=== PATIENT | male | born 1975 | race Caucasian/White ===

== ENCOUNTER 2018-02-03 01:23 | Outpatient (CLI) | payer MEDICAID, SELFPAY ==
--- NOTE | 2018-02-13 10:35 | HOLTER_ITS ---
HOLTER MONITOR REPORT DATE OF DICTATION February 13, 2018 INTERPRETATION Baseline rhythm sinus. Rare single PAC. 5 bursts of SVT, longest 11 beat duration, fastest 149 beats per minute. No atrial f ibrillation. Rare single PVC. No VT. Nocturnal heart rates as low as 55-60 beats per minute, sinus bradycardia. SYMPTOMS No symptoms. Average heart rate 81 beats per minute. Duy Quach M.D. AASHISH/tray T-02/13/2018
== END 2018-02-03 01:43 ==
PROVIDERS: PCP Nurse Practitioner Family; Visit Provider Nurse Practitioner Family
DX: R55 Syncope and collapse (principal); R00.1 Bradycardia, unspecified; I47.1 Supraventricular tachycardia
CPT/HCPCS: 93225

== ENCOUNTER 2018-02-09 11:48 | Outpatient (CLI) | payer MEDICAID, SELFPAY | END 2018-02-09 12:08 | PROVIDERS: PCP Nurse Practitioner Family; Visit Provider Nurse Practitioner Family | DX: R55 Syncope and collapse (principal); I47.1 Supraventricular tachycardia; R00.1 Bradycardia, unspecified | CPT/HCPCS: 93226 ==

== ENCOUNTER 2018-05-15 13:24 | Outpatient (CLI) | payer MEDICAID, SELFPAY ==
--- NOTE | 2018-05-15 15:30 | DI.RAD_ITS ---
SYMPTOM/DIAGNOSIS: LT SHOULDER PAIN, M25.512 LEFT SHOULDER; No fracture or dislocation is seen. The glenohumeral joint space is well maintained. There is minimal spurring at the AC joint. The visualized portions of the left ribs appear intact. IMPRESSION: Minimal AC joint degenerative changes.
== END 2018-05-15 13:44 ==
PROVIDERS: PCP Nurse Practitioner Family; Visit Provider Nurse Practitioner Family
DX: M25.512 Pain in left shoulder (principal); M19.012 Primary osteoarthritis, left shoulder
CPT/HCPCS: 73030

== ENCOUNTER 2018-06-29 00:31 | Outpatient (CLI) | payer MEDICAID, SELFPAY ==
--- NOTE | 2018-06-29 10:43 | DI.MRI_ITS ---
SYMPTOMS/DIAGNOSIS: PRIMARY OA OF SHOULDER, LT SHOULDER BICEPS TENDINITIS LEFT SHOULDER MRI: MRI examination of the shoulder was performed according to the usual protocol. No significant bony signal abnormality seen. Mild hypertrophic changes of the acromioclavicular joint are noted. The supraspinatus, subscapularis and infraspinatus tendons appear intact except for minimal abnormal signal in supraspinatus myotendinous junction region which may represent a small partial thickness tear. No full thickness rotator cuff tear seen. The requisition raises the possibility of biceps tendinitis. The biceps tendon shows normal signal throughout its course and normal placement in the bicipital groove. Note is made however of abnormal signal in the rotator interval region probably associated with coracohumeral ligament. No gross labral defect identified by noncontrast criteria. CONCLUSION: No evidence of a biceps tendinitis, however, there is question of a rotator interval tear as described above. Small partial thickness nonretracted supraspinatus tendon tear may be present as well. Tiny partial thickness subscapularis tendon tear may also be present.
== END 2018-06-29 00:51 ==
PROVIDERS: PCP Nurse Practitioner Family; Visit Provider Nurse Practitioner Family
DX: M25.512 Pain in left shoulder (principal); M19.012 Primary osteoarthritis, left shoulder; M75.82 Other shoulder lesions, left shoulder
CPT/HCPCS: 73221

== ENCOUNTER 2020-04-25 19:46 | Outpatient (REF) | payer MEDICAID, SELFPAY ==
[2020-04-25 20:20] LABS: ALT 28 U/L (16-63); AST 21 U/L (15-37); Alkaline Phosphatase 48 U/L (46-116); Anion Gap 9.4 mmol/L (3-11); BUN 18 mg/dL (7-18); Bilirubin, Total 0.2 mg/dL (0.2-1.0); CO2 26.6 mmol/L (21.0-32.0); CREATININE 1.1 mg/dL (0.70-1.30); Calcium 9.3 mg/dL (8.5-10.1); Chloride 104 mmol/L (98-107); Glucose 116 mg/dL (74-106); Potassium 3.7 mmol/L (3.5-5.1); Sodium 140 mmol/L (136-145); Total Protein 7.6 g/dL (6.4-8.2)
== END 2020-04-25 19:47 | disposition home or self-care (01) ==
LOC: NCHCN 19:46
PROVIDERS: PCP Nurse Practitioner Family; Visit Provider Nurse Practitioner Family
DX: I10 Essential (primary) hypertension (principal); E78.5 Hyperlipidemia, unspecified
CPT/HCPCS: 80053

== ENCOUNTER 2020-11-15 11:19 | Emergency (ER) | payer MEDICAID, SELFPAY ==
[2020-11-15] VITALS (18 sets, daily range): BP systolic 168–215; BP diastolic 92–136; PULSE 78–102; RESP 16; TEMP 36.6; O2SAT 95–98
--- NOTE | 2020-11-15 11:33 | W.ED.GENAD ---
Discharge Plan Disposition Patient Disposition: HOME Condition: Stable Discharge Details Clinical Impression: Colitis Primary Care Provider: Cyndi Song ED Provider: Leonard Gibbs Home Meds and New Rx's Prescriptions: New dicyclomine 20 mg tablet 20 mg PO QID Qty: 20 RF: 0 Continued amlodipine 5 MG tablet 5 mg PO DAILY RF: 0 lisinopril 40 MG tablet 40 mg PO DAILY RF: 0 amitriptyline 25 MG tablet 25 mg PO HS Qty: 30 RF: 3 labetalol 100 MG tablet 100 mg PO BID Qty: 60 RF: 0 Discharge Instructions Instructions: Colitis (ED) Additional Instructions: At this time your CT reveals colitis, or inflammation of your bowel. This is nonspecific, no clear indication for antibiotic therapy, may require further evaluation as an outpatient for definitive care. Bentyl as directed. Plenty of fluids to avoid dehydration, clear liquid diet, advance as tolerated. Please watch for new or worsening symptoms and return to the ER for any concerns. Otherwise I recommend contacting your primary care provider on Tuesday to discuss your ER visit and need for outpatient reevaluation. Outpatient colonoscopy may be indicated for further work-up Discharge Data Discharge Date/Time-TO BE ENTERED AT DEPARTURE: 11/15/20 14:58 Medical Decision Making 44-year-old gentleman presents with lower abdominal cramping that began last night associate with one episode of vomiting today. Clinically he is hypertensive at 203/112, otherwise laboratory values are unremarkable, afebrile, abdomen appears to be nonsurgical. He has not taken any of his morning medications, I would like to provide 20 IV labetalol as she already does take an oral beta-bj, will obtain IV access and obtain laboratory values for further assessment of his symptoms. Differential includes not excluded to gastritis, appendicitis, mesenteric adenitis, diverticulitis, small bowel obstruction, ileus, colitis, etc. Patient denies any active nausea, will not provide antiemetic. Blood pressure is trending downwards the patient still remains hypertensive, will give a second dose of labetalol White blood cell count of 11.25 hemoglobin 17.9 hematocrit 53.4 platelet count 289, absolute neutrophils 9.00, electrolytes unremarkable, creatinine 1.2 with GFR greater than 60, glucose 110, urinalysis with trace ketones Given his discomfort, will obtain CT imaging for further evaluation of possible etiology. CT reveals bowel wall thickening consistent with ileitis, and colitis. Patient appears hemoconcentrated, minimal leukocytosis of 11.25 with absolute neutrophils 9.00. No fever. Abdomen nonsurgical in nature. Discussed CT findings with patient. No clear indication to initiate antibiotic therapy. Will provide IV Toradol and Bentyl. Patient upon reevaluation reports that his symptoms are improving with the medication. Will provide a prescription for Bentyl, encouraged to return to the ER for new or worsening symptoms, and recommend that he contact his primary care provider on Tuesday, if symptoms persist further evaluation to potential colonoscopy could be indicated, may require GI and/or surgical consultation. Standard discharge and return precautions provided This documentation was generated using [email or web address] system, please disregard any oddities of phrase or misspellings. Medical Records Medical records reviewed: Yes I reviewed the patient's medical records. Imaging Data Radiologic Study: Attestation: I personally reviewed and interpreted this imaging study as follows: Imaging: CT Scan Radiologist's impression: PROCEDURE INFORMATION: Exam: CT Abdomen And Pelvis With Contrast Exam date and time: 11/15/2020 12:23 PM Age: 44 years old Clinical indication: Abdominal pain; Generalized; Patient HX: Rlq llq pain TECHNIQUE: Imaging protocol: Computed tomography of the abdomen and pelvis with contrast. Contrast material: OMNIPAQUE 350; Contrast volume: 100 ml; Contrast route: INTRAVENOUS (IV); COMPARISON: No relevant prior studies available. FINDINGS: Liver: Normal. No mass. Gallbladder and bile ducts: Normal. No calcified stones. No ductal dilation. Pancreas: Normal. No ductal dilation. Spleen: Normal. No splenomegaly. Adrenal glands: Normal. No mass. Kidneys and ureters: 15 mm simple cyst right kidney. . No follow-up imaging recommended . Subcentimeter low attenuation area in the right kidney is too small for characterization. Stomach and bowel: Bowel wall thickening throughout the ileum consistent with ileitis. Series 4, image 44. Series 5, image 30 Mild Bowel wall thickening in the right colon and proximal right transverse colon consistent with colitis.. Differential includes decompressed bowel. Appendix: No evidence of appendicitis. Intraperitoneal space: Minimal free fluid in the pelvis Vasculature: Unremarkable. No abdominal aortic aneurysm. Lymph nodes: Unremarkable. No enlarged lymph nodes. Urinary bladder: Unremarkable as visualized. LAURYN HICKS Preliminary Radiology Report BILINGUAL MANAGER (QA) DISCREPANCY? If there is a discrepancy between the preliminary and final interpretation, please notify [facility] via [email or web address]. If you do not have access to our QA portal, call our QA team at [phone] CONFIDENTIALITY STATEMENT This report is intended only for the use of the referring physician, and only in accordance with law, If you received this in error, call [phone] Page 2 of 2 Reproductive: Unremarkable as visualized. Bones/joints: Unremarkable. No acute fracture. Soft tissues: Unremarkable. IMPRESSION: 1. Bowel wall thickening throughout the ileum consistent with ileitis. Series 4, image 44. Series 5, image 30 2. Mild Bowel wall thickening in the right colon and proximal right transverse colon consistent with colitis.. Differential includes decompressed bowel. Lab Data Lab results reviewed: Yes I reviewed the patient's lab results. Labs: Laboratory Tests Range/Units 11/15/20 11/15/20 11/15/20 11:56 11:56 13:42 WBC (4.4-10.8) 10^3/uL 11.25 H RBC (4.36-5.78) 10^6/uL 6.34 H Hgb (13.5-17.5) g/dL 17.9 H Hct (40.0-50.0) % 53.4 H MCV (80-95) fL 84.2 MCH (27.0-33.0) pg 28.2 MCHC (32.0-36.0) % 33.5 RDW (11.8-14.1) % 13.8 Plt Count (130-400) 10^3/uL 289 MPV (8.0-11.0) fL 9.6 Immature Gran % 0.0 Neutrophils % 80.0 Lymphocytes % 10.0 Atypical Lymphs % 3 Monocytes % 7.0 Eosinophils % 0.0 Basophils % 0.0 Nucleated RBC % % 0 Absolute Neutrophils (1.2-6.7) 10^3/uL 9.00 H Absolute Lymphocytes (1.2-3.4) 10^3/uL 1.46 Absolute Monocytes (0.1-0.8) 10^3/uL 0.79 Absolute Eosinophils (0.0-0.7) 10^3/uL 0.00 Absolute Basophils (0.0-0.2) 10^3/uL 0.00 RBC Morphology Normal Sodium (136-145) mmol/L 142 Potassium (3.5-5.1) mmol/L 3.9 Chloride (98-107) mmol/L 102 Carbon Dioxide (21.0-32.0) mmol/L 28.2 Anion Gap (3-11) mmol/L 11.8 H BUN (7-18) mg/dL 14 Creatinine (0.70-1.30) mg/dL 1.2 Estimated GFR/1.73 m2 (mL/min/1.73m2) >= 60.00 Glucose (74-106) mg/dL 110 H Calcium (8.5-10.1) mg/dL 9.3 Total Bilirubin (0.2-1.0) mg/dL 0.7 AST (15-37) U/L 16 ALT (16-63) U/L 30 Alkaline Phosphatase (46-116) U/L 44 L Total Protein (6.4-8.2) g/dL 8.5 H Albumin (3.4-5.0) g/dL 4.3 Lipase (73-393) U/L 77 Urine Color (Yellow) Yellow Urine Clarity (Clear) Clear Urine pH (5-8) 7.5 Ur Specific Salix (1.005-1.025) 1.010 Urine Protein (Negative) mg/dL 30 H Urine Ketones (Negative) mg/dL Trace H Urine Blood (Negative) Negative Urine Nitrite (Negative) Negative Urine Bilirubin (Negative) Negative Urine Urobilinogen (Up TO 0.2) EU/dL 1.0 H Ur Leukocyte Esterase (Negative) Negative Urine RBC (0-2) HPF Negative Urine WBC (0-5) HPF 0-2 Ur Epithelial Cells (Negative) HPF Rare Urine Crystals (Negative) HPF Negative Urine Bacteria (Negative) HPF Negative Urine Casts (Negative) LPF Negative Urine Mucus (Negative) Trace Ur Culture Indicated? No Urine Glucose (Negative) mg/dL Negative Urine Opiates Screen (Negative) Urine Methadone Screen (Negative) Ur Barbiturates Screen (Negative) Ur Tricyclics Screen (Negative) Ur Amphetamines Screen (Negative) U Benzodiazepines Scrn (Negative) Urine Cocaine Screen (Negative) Ur THC Screen (Negative) Range/Units 11/15/20 13:42 WBC (4.4-10.8) 10^3/uL RBC (4.36-5.78) 10^6/uL Hgb (13.5-17.5) g/dL Hct (40.0-50.0) % MCV (80-95) fL MCH (27.0-33.0) pg MCHC (32.0-36.0) % RDW (11.8-14.1) % Plt Count (130-400) 10^3/uL MPV (8.0-11.0) fL Immature Gran % Neutrophils % Lymphocytes % Atypical Lymphs % Monocytes % Eosinophils % Basophils % Nucleated RBC % % Absolute Neutrophils (1.2-6.7) 10^3/uL Absolute Lymphocytes (1.2-3.4) 10^3/uL Absolute Monocytes (0.1-0.8) 10^3/uL Absolute Eosinophils (0.0-0.7) 10^3/uL Absolute Basophils (0.0-0.2) 10^3/uL RBC Morphology Sodium (136-145) mmol/L Potassium (3.5-5.1) mmol/L Chloride (98-107) mmol/L Carbon Dioxide (21.0-32.0) mmol/L Anion Gap (3-11) mmol/L BUN (7-18) mg/dL Creatinine (0.70-1.30) mg/dL Estimated GFR/1.73 m2 (mL/min/1.73m2) Glucose (74-106) mg/dL Calcium (8.5-10.1) mg/dL Total Bilirubin (0.2-1.0) mg/dL AST (15-37) U/L ALT (16-63) U/L Alkaline Phosphatase (46-116) U/L Total Protein (6.4-8.2) g/dL Albumin (3.4-5.0) g/dL Lipase (73-393) U/L Urine Color (Yellow) Urine Clarity (Clear) Urine pH (5-8) Ur Specific Salix (1.005-1.025) Urine Protein (Negative) mg/dL Urine Ketones (Negative) mg/dL Urine Blood (Negative) Urine Nitrite (Negative) Urine Bilirubin (Negative) Urine Urobilinogen (Up TO 0.2) EU/dL Ur Leukocyte Esterase (Negative) Urine RBC (0-2) HPF Urine WBC (0-5) HPF Ur Epithelial Cells (Negative) HPF Urine Crystals (Negative) HPF Urine Bacteria (Negative) HPF Urine Casts (Negative) LPF Urine Mucus (Negative) Ur Culture Indicated? Urine Glucose (Negative) mg/dL Urine Opiates Screen (Negative) Negative Urine Methadone Screen (Negative) Negative Ur Barbiturates Screen (Negative) Negative Ur Tricyclics Screen (Negative) Negative Ur Amphetamines Screen (Negative) Negative U Benzodiazepines Scrn (Negative) Negative Urine Cocaine Screen (Negative) Negative Ur THC Screen (Negative) Negative HPI General Mode of arrival: ambulatory. Date/Time Provider Initiated Documentation: 11/15/20 11:33. Limitations to Documentation: no limitations. Information obtained by: patient. HPI Narrative: This is a 44-year-old gentleman, past medical history that includes hypertension, current everyday smoker, presenting to the ER complaining of diffuse lower abdominal cramping that began yesterday evening, vomited one time this morning, reporting mild nausea and a single loose stool but not true diarrhea. Patient denies recent illness or trauma. Denies fever, chest pain, shortness of breath, back pain, black tarry stools or bright red blood in his stools, dysuria, pain in his groin or testicles. He denies previous abdominal surgeries. He has not taken any [id number] medication for his symptoms. Patient states that his pain is mild to moderate and is always there but does become more severe during some crampy episodes. Denies any potential bad food exposure, sick contacts, recent travel. He did not take his morning medications. Related Data Home Medications Medication Instructions Recorded Confirmed labetalol 100 mg PO BID #60 tab 01/20/17 11/15/20 amlodipine 5 mg PO DAILY tab-cap 06/14/17 11/15/20 lisinopril 40 mg PO DAILY tab-cap 06/14/17 11/15/20 amitriptyline 25 mg PO HS #30 tab-cap 06/15/17 11/15/20 dicyclomine 20 mg PO QID #20 tab 11/15/20 Previous Rx's Medication Instructions Recorded labetalol 100 mg PO BID #60 tab 01/20/17 amitriptyline 25 mg PO HS #30 tab-cap 06/15/17 dicyclomine 20 mg PO QID #20 tab 11/15/20 Allergies Allergy/AdvReac Type Severity Reaction Status Date / Time No Known Allergies Allergy Unverified 11/15/20 11:35 General Stated Complaint: Abd Prob DAJA: 3 Review of Systems Constitutional Constitutional: Denies fever(s) and Denies headache(s) ENT Ears, Nose, Mouth, and Throat: Denies headache(s) Cardiovascular Cardiovascular: Denies chest pain and Denies dyspnea Respiratory Respiratory: Denies cough and Denies dyspnea Gastrointestinal Gastrointestinal: Reports abdominal pain, Denies melena, Denies hematochezia, Denies constipation, Denies diarrhea, Reports loose stools, Reports nausea and Reports vomiting Genitourinary Genitourinary: Denies dysuria and Denies testicular pain Musculoskeletal Musculoskeletal: Denies back pain Integumentary/Breasts Skin/Breast: Denies rash Neurologic Neurologic: Denies headache(s) [facility] Social History Smoking/Tobacco Use Status: Current every day Smoking risk assessment performed?: Yes Alcohol Intake: former Drug use: Never Do you feel safe at home: Yes Do you feel safe in your relationship?: Yes Exam Const General: cooperative, healthy appearing, comfortable and no acute distress Orientation: alert and awake HENMT Head: normal to inspection, normocephalic and atraumatic Face and sinus: normal facial exam Mouth: moist mucous membranes Eyes General: appearance normal, both eyes and all related structures Conjunctivae: conjunctivae normal Neck Neck: normal visual inspection, trachea midline and supple Resp Effort & Inspection: normal respiratory effort and able to speak in complete sentences Auscultation: clear to auscultation bilaterally Cardio Rate: regular rate Rhythm: regular rhythm GI Inspection: normal to inspection Palpation: soft, not firm, no guarding, no pulsatile masses and tender (Diffuse mild lower) not at McBurney's point, Brady's sign negative and with no rebound tenderness Auscultation: normal bowel sounds Back/Spine/Pelvis Back: No back tenderness Skin General skin exam: no rashes or lesions noted Neuro General: patient alert, patient awake, moves all extremities and no focal motor deficits Cognition: normal cognition Speech: speech normal Gait: normal gait Sensory Exam: no sensory deficits noted Psych Appearance: grossly normal Mental Status: mental status grossly normal Course Vital Signs Vital signs: Vital Signs Temperature 36.6 C 11/15/20 11:30 Pulse 91 H 11/15/20 11:30 Respiratory Rate 16 11/15/20 11:30 Pulse Oximetry 96 11/15/20 11:30 Temperature 36.6 C 11/15/20 11:30 Temperature Source Temporal Artery Scan 11/15/20 11:30 Pulse 91 H 11/15/20 11:30 Respiratory Rate 16 11/15/20 11:30 Blood Pressure Position Supine 11/15/20 11:30 Pulse Oximetry 96 11/15/20 11:30 Oxygen Delivery Method Room Air 11/15/20 11:30 Oxygen Flow Rate 0 11/15/20 11:30 Pain Level 10 11/15/20 11:30
[2020-11-15 12:03] LABS: Abs Immature Grans 0.03 10^3/uL (0.0-0.06); HCT 53.4 % (40.0-50.0); HGB 17.9 g/dL (13.5-17.5); MCH 28.2 pg (27.0-33.0); MCHC 33.5 % (32.0-36.0); MCV 84.2 fL (80-95); MPV 9.6 fL (8.0-11.0); Nucleated RBC 0 %; Platelet Count 289 10^3/uL (130-400); RBC 6.34 10^6/uL (4.36-5.78); RDW 13.8 % (11.8-14.1); RDW-SD 42.2 fL; WBC 11.25 10^3/uL (4.4-10.8)
--- NOTE | 2020-11-15 12:15 | DI.CT_ITS ---
Exam(s) CT ABDOMEN PELVIS W EXAM: CT ABDOMEN PELVIS W CLINICAL HISTORY: abd pain. TECHNIQUE: Imaging Protocol: Axial computed tomography images with coronal and sagittal reformatted images were created and reviewed CONTRAST MATERIAL: Intravenous: Omnipaque 350 Contrast volume:100 ml Oral: yes / no COMPARISON: CT UPPER ABD WITH CONTRAST (P) from 04/17/2009 FINDINGS: ABDOMEN: Lung Bases: Normal where visualized. Liver: Normal density. No measurable mass. Gallbladder and biliary tract: No radiodense calculus or dilation. Pancreas: Normal density, no abnormal calcifications or inflammatory process. Spleen: Normal. Kidneys: Scarring lower pole right kidney. Right renal cysts.. No radiodense stones or obstructive uropathy. No masses seen. Adrenal glands: No masses seen. Abdominal Aorta: Abdominal portion non-dilated. Mild atherosclerotic changes. PELVIS: Bladder: No gross wall thickening. No calculi.No focal mass. Bowel: Abnormally thickened and mildly dilated loops ileum, consistent with ileitis. Ascending colon mainly decompressed. A few scattered diverticula seen in the descending colon.. Appendix normal.St omach and jejunum unremarkable. Peritoneal cavity: Minimal fluid in the pelvis. Mild mesenteric edema. Soft tissues: Small fatty co ntaining left inguinal hernia. Bones: Within normal limits for age. Reproductive organs: Within normal limits. Lymph nodes: Unremarkable. Impression: Mild dilatation diffuse wall thickening involving the ileum, consistent with ileitis. Question of mi ld inflammation of the cecum and ascending colon. RADIATION DOSE DELIVERED: 703.55mGy.cm Total DLP DATA REPOSITORY: All CT scans at this facility are submitted to the National Radiology Data Registry (NRDR) Dose Index Registry (DIR) with the [employer] ([employer]). RADIATION OPTIMIZATION: All CT scans at this facility use at least one of these dose optimization te chniques: automated exposure control; mA and/or kV adjustment per patient size (includes targeted exa ms where dose is matched to clinical indication); or iterative reconstruction.
[2020-11-15 12:16] LABS: ALT 30 U/L (16-63); AST 16 U/L (15-37); Albumin 4.3 g/dL (3.4-5.0); Alkaline Phosphatase 44 U/L (46-116); Anion Gap 11.8 mmol/L (3-11); BUN 14 mg/dL (7-18); Bilirubin, Total 0.7 mg/dL (0.2-1.0); CO2 28.2 mmol/L (21.0-32.0); CREATININE 1.2 mg/dL (0.70-1.30); Calcium 9.3 mg/dL (8.5-10.1); Chloride 102 mmol/L (98-107); Glucose 110 mg/dL (74-106); Lipase 77 U/L (73-393); Potassium 3.9 mmol/L (3.5-5.1); Sodium 142 mmol/L (136-145); Total Protein 8.5 g/dL (6.4-8.2)
[2020-11-15 12:21] LABS: Absolute Lymphocyte Count 1.46 10^3/uL (1.2-3.4); Absolute Monocyte Count 0.79 10^3/uL (0.1-0.8); Atypical Lymphocytes % 3; Diff Comment Manual Differential; RBC Morphology Normal
[2020-11-15] MEDS: Labetalol 100 MG/20 ML VIAL 20 MG IVP ×2 (12:40→14:00)
[2020-11-15] MEDS: Omnipaque 350 MG/ML 100 ML BTL IJ (13:03)
[2020-11-15] MEDS: Normal Saline Flush 10 ML SYR IVP (13:04)
[2020-11-15] MEDS: Normal Saline 1,000 ML 1000 ML IV (13:05)
--- NOTE | 2020-11-15 13:34 | DI.VRAD_ITS ---
PROCEDURE INFORMATION: Exam: CT Abdomen And Pelvis With Contrast Exam date and time: 11/15/2020 12:23 PM Age: 44 years old Clinical indication: Abdominal pain; Generalized; Patient HX: Rlq llq pain TECHNIQUE: Imaging protocol: Computed tomography of the abdomen and pelvis with contrast. Contrast material: OMNIPAQUE 350; Contrast volume: 100 ml; Contrast route: INTRAVENOUS (IV); COMPARISON: No relevant prior studies available. FINDINGS: Liver: Normal. No mass. Gallbladder and bile ducts: Normal. No calcified stones. No ductal dilation. Pancreas: Normal. No ductal dilation. Spleen: Normal. No splenomegaly. Adrenal glands: Normal. No mass. Kidneys and ureters: 15 mm simple cyst right kidney. . No follow-up imaging recommended . Subcentimeter low attenuation area in the right kidney is too small for characterization. Stomach and bowel: Bowel wall thickening throughout the ileum consistent with ileitis. Series 4, image 44. Series 5, image 30 Mild Bowel wall thickening in the right colon and proximal right transverse colon consistent with colitis.. Differential includes decompressed bowel. Appendix: No evidence of appendicitis. Intraperitoneal space: Minimal free fluid in the pelvis Vasculature: Unremarkable. No abdominal aortic aneurysm. Lymph nodes: Unremarkable. No enlarged lymph nodes. Urinary bladder: Unremarkable as visualized. Reproductive: Unremarkable as visualized. Bones/joints: Unremarkable. No acute fracture. Soft tissues: Unremarkable. IMPRESSION: 1. Bowel wall thickening throughout the ileum consistent with ileitis. Series 4, image 44. Series 5, image 30 2. Mild Bowel wall thickening in the right colon and proximal right transverse colon consistent with colitis.. Differential includes decompressed bowel. Dictated and Authenticated by: Naomi Carreon MD. Ordering:ABRAHAM Valle MD
[2020-11-15 13:51] LABS: Bilirubin Negative (Negative); Blood Negative (Negative); Clarity Clear (Clear); Glucose Negative (Negative); Ketones Trace mg/dL (Negative); Leukocyte Esterase Negative (Negative); Nitrite Negative (Negative); pH 7.5 (5-8)
[2020-11-15 14:04] LABS: Bacteria Negative HPF (Negative); C & S Indicated? No; Casts Negative LPF (Negative); Crystals Negative HPF (Negative); Epithelial Cells Rare HPF (Negative); Mucus Trace (Negative); RBC Negative HPF (0-2); WBC 0-2 HPF (0-5)
[2020-11-15] MEDS: Dicyclomine 20 MG TAB PO (14:07)
[2020-11-15] MEDS: Ketorolac 30 MG/ML VIAL IVP (14:07)
[2020-11-15 14:22] LABS: *AMPHETAMINES SCREEN URINE Negative (Negative); *BARBITURATES SCREEN URINE Negative (Negative); *BENZODIAZEPINES SCREEN URINE Negative (Negative); Cannabinoids THC Negative (Negative); Cocaine Screen,Urine Negative (Negative); METHADONE URINE SCREEN Negative (Negative); OPIATES URINE SCREEN Negative (Negative); Tricyclic Antidepressants Negative (Negative)
== END 2020-11-15 14:58 | disposition home or self-care (01) ==
PROVIDERS: Emergency Provider Physician Assistant; PCP Nurse Practitioner Family
DX: K52.9 Noninfective gastroenteritis and colitis, unspecified (principal); I10 Essential (primary) hypertension; F17.210 Nicotine dependence, cigarettes, uncomplicated
CPT/HCPCS: 36415; 80053; 80307; 83690; 96361; 96374; 96375; 99285; 74177; 81003; 81015; 85025; 99284; J1885; J3490

== ENCOUNTER 2021-01-18 11:00 | Emergency (ER) | payer MEDICAID, SELFPAY ==
[2021-01-18] VITALS (17 sets, daily range): BP systolic 136–185; BP diastolic 81–113; PULSE 51–66; RESP 16; TEMP 36.2; O2SAT 94–98
--- NOTE | 2021-01-18 11:24 | ED.GENADUL_ITS ---
Discharge Plan Disposition Patient Disposition: [facility] Condition: Serious Discharge Details Chief Complaint: Headache Clinical Impression: Stroke Primary Care Provider: Cyndi Song ED Provider: Zehra Ariza Home Meds and New Rx's Prescriptions: No Action amlodipine 5 MG tablet 5 mg PO DAILY RF: 0 lisinopril 40 MG tablet 40 mg PO DAILY RF: 0 amitriptyline 25 MG tablet 25 mg PO HS Qty: 30 RF: 3 labetalol 100 MG tablet 100 mg PO BID Qty: 60 RF: 0 Discharge Data Discharge Date/Time-TO BE ENTERED AT DEPARTURE: 01/18/21 17:00 Medical Decision Making Patient is a 45-year-old male presents today with chief complaint of headache and visual changes. He states that he had a sudden onset bitemporal headache 1 week ago. Patient has had a history of migraines and felt that initially this would go away. However, 3 days ago he began having visual field cuts on the left side. Describes lateral visual loss affecting the left eye. She denies any fevers or chills. No trauma. No neck pain. No rash. Denies any chest pain or shortness of breath. No fevers or chills. Denies any change in appetite. No GI upset. Denies any eye pain. Endorses photophobia. Denies phonophobia. States she is been using NSAIDs and Tylenol without relief of his headache. Symptoms have not progressed or changed today, rather the length of symptoms prompted the patient care in the ED today. Patient has been here for headaches historically but are typically associated with his hypertension states that he has been on his antihypertensive medications, denies any missed doses. He does not check his blood pressure routinely, is not sure when he will saw his primary physician. On exam, patient appears comfortable and nontoxic. He has a flat affect, not very forthcoming with information. His left visual acuitiy 20/30, right 20/200. Intact extraocular movements. He does not respond on either side to visual threat. Isolation testing of visual field is very difficult to map out. Patient have a notable difficulty with peripheral vision on both sides although the patient continues to this related to the left side and of the peripheral contact on the right with monocular vision. Finger/nose testing intact. No meningismus. BP initially 185/113, this is not atypical for the patient. Will send over urgently for CT for stroke protocol. Will obtain CTA. Completed Amsler grid. Patient has CT reviewed by myself. Concerned for mass in right occipital region. Patient states pain down to an 8/10. Will augment with Dilaudid. Has been here with severe DUNCAN historically. Has had MRI and CT, has been several years since imaging. Recieved Dilaudid with good relief historically. BP down with systolic now in the 140s and diastolic in the 90s. Contacted by radiologist. They are concerned for evolving stroke with mild luxury perfusion. He advises that vessels are robust and stroke is likely embolic or microvascular in nature. Discussed with willard and , Lorna [phone]. Consulted with Dr. Arriaga. Advised this could be venous sinus thrombosis with edema. Typically has DUNCAN with occipital infarcts. Recommended ASA, Lovenox. ASA and Lovenox 1mg/kg given SC. Spoke again with Dr. Cano. He reviewed images, recommends this looks arterial. There is distal [employer] occlusion on the right, nothing proximal. May have had the infarct several days ago and right sided visual neglect. They are able to accept the patient later. Recommended Toradol for pain. Gave nicotine gum. Patient smokes 1PPD. [facility] able to accept patient. Symptoms have remained stable, VS stable. Pain improved. During this encounter, kept family updated. Mom did come in to see patient. Patient agreeable to transfer for further care of evolving stroke. HPI General Mode of arrival: ambulatory . Date/Time Provider Initiated Documentation: 01/18/21 11:01 . Limitations to Documentation: no limitations . Information obtained by: patient and RN notes reviewed . History of Present Illness 45 year old M presents to the emergency department with the chief complaint of headache, visual deficit left eye, described as severe, with intensity rated at 10. Quality is described as aching, and is localized to the face. Patient reports no radiation. Patient started experiencing this week(s) (1) and it has been constant. No relieving factors improve symptom(s), No exacerbating factors reported . Patient notes no other symptoms. and headaches; denies chest pain, cough, fever/chills, loss of appetite, nausea/vomiting, rash, shortness of breath, syncope and weakness. Patient did receive the following treatments prior to arrival, NSAID Related Data Home Medications Medication Instructions Recorded Confirmed labetalol 100 mg PO BID #60 tab 01/20/17 01/18/21 amlodipine 5 mg PO DAILY tab-cap 06/14/17 01/18/21 lisinopril 40 mg PO DAILY tab-cap 06/14/17 01/18/21 amitriptyline 25 mg PO HS #30 tab-cap 06/15/17 01/18/21 Previous Rx's Medication Instructions Recorded labetalol 100 mg PO BID #60 tab 01/20/17 amitriptyline 25 mg PO HS #30 tab-cap 06/15/17 Allergies Allergy/AdvReac Type Severity Reaction Status Date / Time No Known Allergies Allergy Unverified 01/18/21 11:13 General Stated Complaint: Headache DAJA: 3 Review of Systems Constitutional Constitutional: Reports as per HPI, Denies chills, Reports fatigue, Denies fever(s), Reports headache(s) and Denies weakness Eyes Eyes: Reports as per HPI, Denies blurry vision, Reports change in vision (feels that vision laterally in left eye is diminished x 3 days), Denies diplopia, Denies floaters, Reports loss of peripheral vision (left side), Reports loss of vision, Denies eye pain (denies eye pain), Denies seeing flashes and Reports photophobia ENT Ears, Nose, Mouth, and Throat: Denies vertigo, Reports headache(s) and Denies neck pain Cardiovascular Cardiovascular: Reports as per HPI, Denies chest pain, Denies lightheadedness, Denies radiating jaw, neck or arm pain and Denies dyspnea Respiratory Respiratory: Reports as per HPI, Denies chest congestion, Denies cough and Denies dyspnea Gastrointestinal Gastrointestinal: Reports as per HPI, Denies abdominal pain, Denies change in bowel habits, Denies nausea and Denies vomiting Musculoskeletal Musculoskeletal: Reports as per HPI, Denies back pain, Denies myalgias, Denies muscle cramps, Denies neck pain and Denies numbness Integumentary/Breasts Skin/Breast: Reports as per HPI and Denies rash Neurologic Neurologic: Reports as per HPI, Denies abnormal movements, Denies abnormal speech, Denies behavioral changes, Denies confusion, Denies vertigo, Reports headache(s), Denies localized weakness, Reports loss of vision, Denies numbness, Denies sensory deficit and Denies weakness Psychiatric Psychiatric: Denies behavioral changes and Denies confusion Endocrine Endocrine: Reports fatigue [facility] Social History Smoking/Tobacco Use Status: Current every day Tobacco Type: cigarettes Smoking risk assessment performed?: Yes Alcohol Intake: former Drug use: Never Substance use type: does not use Do you feel safe at home: Yes Do you feel safe in your relationship?: Yes Exam Const General: cooperative, healthy appearing, uncomfortable, no acute distress, well developed and well groomed Nutritional Appearance: average body habitus and well nourished Orientation: alert, awake and oriented x3 HENMT Head: normal to inspection, no palpable skull fracture, normocephalic and atraumatic Ears: hearing grossly normal bilaterally, external ears normal and TM's normal bilaterally General nose exam: external nose normal Mouth: oral mucosae normal and moist mucous membranes Throat: posterior oropharynx normal Eyes Visual Graham: visual graham abnormal by confrontation (see MDM) Alignment and Position: alignment normal Periorbital: periorbital findings normal Eyelids: eyelids normal Sclera: sclerae normal Cornea: corneas normal Pupils: PERRL (pupils are small, slight appropriate reaction) EOM: EOM intact bilaterally Neck Neck: normal visual inspection, full ROM, no lymphadenopathy and no meningeal signs Resp Effort & Inspection: normal respiratory effort, able to speak in complete sentences and no respiratory distress Auscultation: clear to auscultation bilaterally, no rales, no rhonchi and no wheezes Cardio Rate: regular rate Rhythm: regular rhythm Heart Sounds: S1 normal and S2 normal Back/Spine/Pelvis Cervical Spine: normal cervical lordosis and cervical ROM normal Skin General skin exam: no rashes or lesions noted Neuro General: patient alert, patient awake, patient oriented x3, gait normal, tone normal, moves all extremities, no meningeal signs and deep tendon reflexes 2+ bilaterally Cranial Nerves: PERRL, EOM intact bilaterally, no nystagmus, facial strength normal, hearing normal, able to rotate head bilaterally and able to elevate shoulders bilaterally Cognition: normal cognition Speech: speech normal Gait: normal gait Motor: muscle tone normal throughout, strength 5/5 throughout, no pronator drift, no movement abnormalities noted and no fasciculations Sensory Exam: no sensory deficits noted DTR's: Rt Brachioradialis: 2+, Lt Brachioradialis: 2+, Rt Patellar: 2+ and Lt Patellar: 2+ Coordination: [id number] test normal, [id number] test normal and Romberg test normal Extrem General: normal to inspection, capillary refill normal, no pedal edema and no calf tenderness Psych Appearance: grossly normal and well kempt Mental Status: mental status grossly normal Speech and Movement: speech and movement normal Course Vital Signs Vital signs: Vital Signs Temperature 36.2 C L 01/18/21 11:06 Pulse 66 01/18/21 11:06 Blood Pressure 185/113 H 01/18/21 11:06 Pulse Oximetry 98 01/18/21 11:06 Temperature 36.2 C L 01/18/21 11:06 Temperature Source Temporal Artery Scan 01/18/21 11:06 Pulse 66 01/18/21 11:06 Respiratory Effort Non-Labored 01/18/21 11:08 Blood Pressure 185/113 H 01/18/21 11:06 Blood Pressure Position Sitting 01/18/21 11:06 Pulse Oximetry 98 01/18/21 11:06 Oxygen Delivery Method Room Air 01/18/21 11:06 Oxygen Flow Rate 0 01/18/21 11:06 Pain Level 10 01/18/21 11:06
[2021-01-18] MEDS: Acetaminophen 500 MG TAB 1000 MG PO (11:32)
[2021-01-18] MEDS: Normal Saline 1,000 ML 1000 ML IV (11:34)
[2021-01-18 11:35] LABS: Abs Immature Grans 0.03 10^3/uL (0.0-0.06); Absolute Basophil Count 0.04 10^3/uL (0.0-0.2); Absolute Eosinophil Count 0.22 10^3/uL (0.0-0.7); Absolute Lymphocyte Count 4.34 10^3/uL (1.2-3.4); Absolute Monocyte Count 0.84 10^3/uL (0.1-0.8); Basophils % 0.3; Eosinophils % 1.7; HCT 47.3 % (40.0-50.0); HGB 15.7 g/dL (13.5-17.5); Immature Grans % 0.2; Lymphocytes % 33.5; MCH 28.2 pg (27.0-33.0); MCHC 33.2 % (32.0-36.0); MCV 84.9 fL (80-95); MPV 9.5 fL (8.0-11.0); Monocytes % 6.5; Neutrophils % 57.8; Nucleated RBC 0 %; Platelet Count 319 10^3/uL (130-400); RBC 5.57 10^6/uL (4.36-5.78); RDW-SD 43.6 fL; WBC 12.95 10^3/uL (4.4-10.8)
[2021-01-18] MEDS: diphenhydrAMINE 50 MG/ML VIAL 25 MG IVP (11:37)
[2021-01-18 11:38] LABS: ESR 15 mm/hr (0-15)
[2021-01-18 11:39] LABS: Absolute Neutrophil Count 7.49 10^3/uL (1.2-6.7)
[2021-01-18] MEDS: Prochlorperazine 10 MG/2 ML VIAL IVP (11:39)
[2021-01-18 11:40] LABS: ALT 24 U/L (16-63); AST 16 U/L (15-37); Albumin 3.8 g/dL (3.4-5.0); Alkaline Phosphatase 37 U/L (46-116); Anion Gap 7.5 mmol/L (3-11); BUN 11 mg/dL (7-18); Bilirubin, Total 0.2 mg/dL (0.2-1.0); CO2 30.5 mmol/L (21.0-32.0); Calcium 9.2 mg/dL (8.5-10.1); Chloride 104 mmol/L (98-107); Glucose 93 mg/dL (74-106); Potassium 4.2 mmol/L (3.5-5.1); Sodium 142 mmol/L (136-145); Total Protein 7.8 g/dL (6.4-8.2)
[2021-01-18 11:43] LABS: PTT Activated 31.4 sec (21.0-27.5); Prothrombin Time 10.1 sec (9.3-11.0)
[2021-01-18 11:55] LABS: ETHANOL BLOOD < 3.0 mg/dL (<10)
[2021-01-18] MEDS: Normal Saline - Diluent 50 ML VIAL IV (12:08)
[2021-01-18] MEDS: Omnipaque 350 MG/ML 100 ML BTL IJ (12:10)
--- NOTE | 2021-01-18 12:14 | DI.CT_ITS ---
Exam(s) CT BRAIN NECK CTA EXAM: CT BRAIN NECK CTA CLINICAL HISTORY: sudden onset DUNCAN, visual change left eye. TECHNIQUE: Imaging Protocol: Axial CT angiography was performed with multi-slice acquisition and mu lti-planar and/or 3D reconstructions. CONTRAST MATERIAL: Intravenous: Omnipaque 350 Contrast volume:structured data in ml COMPARISON: MR MRI - BRAIN W/WO CONTRAST from 06/03/2010 MR MRI - BRAIN W/WO CONTRAST from 06/03/[address] ABDOMEN PELVIS W from 11/15/2020 FINDINGS: CT angiography of the cervical cranial region was performed according to the usual protocol with intr avenous infusion of 85 cc of Omnipaque 350.. Initial noncontrast scanning of the head shows an area of decreased attenuation in the right occipita l lobe near the midline. Findings are suggestive of an evolving infarct period. Visualized lung apices are clear. Visualized portions of thoracic aorta and pulmonary arterial circul ation are unremarkable. There is no evidence of a cervical mass or adenopathy. The tracheal laryngeal structures appear intact. The common, internal, and external carotid arteries are within normal limits in the cervical region w ith no evidence of aneurysm, stenosis, or dissection. The vertebral arteries are unremarkable in appearance in the cervical region with no evidence of aneu rysm, stenosis, or dissection. Intracranial portions of the internal carotid arteries appear normal with no evidence of aneurysm, st enosis, or dissection. Intracranial vertebral arteries and basilar artery appear normal with no evidence of aneurysm, stenos is or dissection. No aneurysm identified in the region of the [id number]. The anterior, middle, and posterior cer ebral arteries and major branches appear intact with no evidence of aneurysm, stenosis, or dissection . No enhancing brain lesion identified on 5 minutes delayed images. There is minimal peripheral enhanc ement of the region of decreased attenuation noted on noncontrast CT, consistent with evolving infarc t... IMPRESSION: Findings suggesting evolving infarct of the right occipital lobe. No vascular abnormality identified . RADIATION DOSE DELIVERED: 2,167.96mGy.cmTotal DLP 2,167.96mGy.cm Total DLP 42.73mGy CTDIvol DATA REPOSITORY: All CT scans at this facility are submitted to the National Radiology Data Registry (NRDR) Dose Index Registry (DIR) with the [employer] (ACR). RADIATION OPTIMIZATION: All CT scans at this facility use at least one of these dose optimization te chniques: automated exposure control; mA and/or kV adjustment per patient size (includes targeted exa ms where dose is matched to clinical indication); or iterative reconstruction.
[2021-01-18 12:34] LABS: Source Nasal/Nares
[2021-01-18] MEDS: HYDROmorphone 2 MG/ML VIAL 1 MG IVP ×2 (12:37→15:32)
--- NOTE | 2021-01-18 12:45 | RT.EKG_ITS ---
APPROVED REPORT Exam: Resting ECG Reason for Exam: stroke Patient Location: E HR:52 bpm ECG Measurements Heart Rate 52 AXIS RI 164 P 63 QRSd 120 QRS -46 QT 472 T 0 QTc 441 Conclusion Sinus bradycardia...rate< 60 Left anterior fascicular block...axis(240,-40), init forces inf Probable left ventricular hypertrophy...multiple LVH criteria ST elev, probable normal early repol pattern...ST elevation, age<55
[2021-01-18 13:34] LABS: COVID-19 PCR Negative (Negative)
[2021-01-18] MEDS: Aspirin 81 MG CHEW 324 MG CH (13:43)
[2021-01-18] MEDS: Enoxaparin 80 MG/0.8 ML SYR SC (13:43)
[2021-01-18] MEDS: Nicotine 4 MG GUM CH (15:15)
[2021-01-18 15:58] LABS: *AMPHETAMINES SCREEN URINE Negative (Negative); *BARBITURATES SCREEN URINE Negative (Negative); *BENZODIAZEPINES SCREEN URINE Negative (Negative); Cannabinoids THC Negative (Negative); Cocaine Screen,Urine Negative (Negative); METHADONE URINE SCREEN Negative (Negative); OPIATES URINE SCREEN Positive (Negative)
[2021-01-18 16:00] LABS: Tricyclic Antidepressants Positive (Negative)
[2021-01-18] MEDS: Nicotine 4 MG GUM (17:02)
== END 2021-01-18 17:00 | disposition short-term general hospital (02) ==
LOC: ER 11:36
PROVIDERS: Emergency Provider Physician Assistant; PCP Nurse Practitioner Family
DX: I63.89 Other cerebral infarction (principal); H53.452 Other localized visual field defect, left eye; I10 Essential (primary) hypertension; Z20.822 Contact with and (suspected) exposure to COVID-19; Z03.818 Encounter for observation for suspected exposure to other biological agents ruled out
CPT/HCPCS: 36415; 70496; 70498; 80053; 80307; 85652; 87635; 93005; 96361; 96372; 96374; 96375; 96376; 99285; 80320; 85025; 85610; 85730; 93010; J0780; J1200; J1650; J3490

== ENCOUNTER 2021-02-23 19:31 | Outpatient (REF) | payer MEDICAID, SELFPAY ==
[2021-02-23 20:51] LABS: Calculated LDL 88 mg/dL (<100); Cholesterol 154 mg/dL (<200); HDL Cholesterol 34 mg/dL (40-60); Triglyceride 161 mg/dL (<150)
== END 2021-02-23 19:32 | disposition home or self-care (01) ==
LOC: NCHCN 19:31
PROVIDERS: Visit Provider Family Medicine
DX: I10 Essential (primary) hypertension (principal)
CPT/HCPCS: 80061

== ENCOUNTER 2021-06-05 02:01 | Outpatient (CLI) | payer MEDICAID, SELFPAY ==
--- NOTE | 2021-06-05 | DI.CT_ITS ---
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 Pulmonary parenchyma: No consolidation or dominant measurable mass. Mild centrilobular emphysematous changes are present. No pulmonary nodules are present. Visualized thyroid gland: Unremarkable. Mediastinum and [place]: No dominant adenopathy or fluid collection. The esophagus is unremarkable. Pleura: No effusion or pneumothorax. Heart: The heart is not dilated. No coronary artery calcifications are seen. No pericardial effusion. Pulmonary arteries: No pulmonary emboli are identified. Aorta: Thoracic aorta non-dilated. Atherosclerosis. Lymph nodes: Within normal limits. Soft tissues: Unremarkable. Bones:Within normal limits for the patient's age. No suspicious lytic or sclerotic lesions are prese nt. ABDOMEN: Liver: Normal density. No measurable mass. Portal, Superior Mesenteric, and Splenic Veins: Unremarkable. Gallbladder and Biliary Tract: No radiodense calculus or dilation. Pancreas: Normal density. No inflammatory process. Stable parenchymal calcifications are seen in th e head and the body. No mass is identified. Spleen: Normal. Adrenals: No masses seen. Kidneys: Stable right renal cortical atrophy. No radiodense stones or obstructive uropathy. Stable r ight renal cysts. Abdominal Aorta: Abdominal portion non-dilated. Atherosclerosis. Bowel: No obstruction or bowel wall thickening. Appendix is unremarkable. Peritoneal Cavity: No ascites, collection or mesenteric inflammatory response. No free air. Lymph Nodes: Within normal limits. Bones: Within normal limits for the patient's age. There has been no change in appearance of the bon es compared to the prior examinations. Soft Tissues: There is a fat containing left inguinal hernia. There is a 1.3 cm subcutaneous nodule in the left inguinal region. This was not present on the prior examinations. (Series 13, image 18) PELVIS: Bladder: Symmetric distention, no gross wall thickening. Reproductive Organs: Unremarkable as visualized. Lymph Nodes: Within normal limits. Bones: Within normal limits. IMPRESSION: 1. No definite evidence from abdominal or pelvic metastatic disease. 2. There is a 1.3 cm subcutaneous nodule in the left inguinal region. Please correlate with patient' s physical exam. 3. No evidence of thoracic metastatic disease. RADIATION DOSE DELIVERED: 1,801mGy.cm Total DLP DATA REPOSITORY: All CT scans at this facility are submitted to the National Radiology Data Registry (NRDR) Dose Index Registry (DIR) with the [employer] (ACR). RADIATION OPTIMIZATION: All CT scans at this facility use at least one of these dose optimization te chniques: automated exposure control; mA and/or kV adjustment per patient size (includes targeted exa ms where dose is matched to clinical indication); or iterative reconstruction.
[2021-06-05] MEDS: Omnipaque 350 MG/ML 50 ML BTL PO (08:13)
[2021-06-05] MEDS: Breeza Beverage 473 ML BTL PO ×2 (08:13→08:14)
[2021-06-05 08:51] LABS: CREATININE 1.1 mg/dL (0.70-1.30)
[2021-06-05] MEDS: Omnipaque 350 MG/ML 100 ML BTL IJ (10:09)
== END 2021-06-05 02:21 ==
PROVIDERS: Visit Provider Nurse Practitioner Family
DX: C69.91 Malignant neoplasm of unspecified site of right eye (principal); R93.5 Abnormal findings on diagnostic imaging of other abdominal regions, including retroperitoneum
CPT/HCPCS: 74177; 71260; 82565; J3490; Q9967

== ENCOUNTER 2021-09-24 17:08 | Outpatient (REF) | payer MEDICAID, SELFPAY ==
[2021-09-24 20:07] LABS: ESR 17 mm/hr (0-15)
[2021-09-24 20:09] LABS: HGB 13.4 g/dL (13.5-17.5); MCH 29.1 pg (27.0-33.0); MCHC 34.4 % (32.0-36.0); MCV 85 fL (80-95); MPV 10.4 fL (8.0-11.0); Platelet Count 334 10^3/uL (130-400); RBC 4.61 10^6/uL (4.36-5.78); RDW 13.4 % (11.8-14.1); RDW-SD 41.1 fL; WBC 11.76 10^3/uL (4.4-10.8)
[2021-09-24 21:02] LABS: Anion Gap 11.6 mmol/L (3-11); BUN 14 mg/dL (7-18); CO2 25.4 mmol/L (21.0-32.0); CREATININE 1.2 mg/dL (0.70-1.30); Calcium 9.3 mg/dL (8.5-10.1); Chloride 102 mmol/L (98-107); Glucose 87 mg/dL (74-106); Magnesium 1.9 mg/dL (1.8-2.4); Potassium 4.3 mmol/L (3.5-5.1); Sodium 139 mmol/L (136-145)
== END 2021-09-24 17:09 | disposition home or self-care (01) ==
LOC: NCHCN 17:08
PROVIDERS: Visit Provider Nurse Practitioner Family
DX: C69.91 Malignant neoplasm of unspecified site of right eye (principal); E78.5 Hyperlipidemia, unspecified; I10 Essential (primary) hypertension; I63.89 Other cerebral infarction; R52 Pain, unspecified; M79.18 Myalgia, other site
CPT/HCPCS: 80048; 85027; 85652; 83735; 86140

== ENCOUNTER → 2022-02-02 02:10 | Outpatient (CLI) | payer MEDICAID, SELFPAY ==
[2022-02-02 10:50] LABS: CREATININE 1.1 mg/dL (0.70-1.30); Estimated GFR 83.32 (mL/min/1.73m2)
--- NOTE | 2022-02-02 11:41 | DI.CT_ITS ---
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 Liver: Normal density. No measurable mass. Portal, Superior Mesenteric, and Splenic Veins: Unremarkable. Gallbladder and Biliary Tract: No radiodense calculus or dilation. Pancreas: Normal density. No inflammatory process is present. There are stable calcifications in the head of the pancreas. Spleen: Normal. Adrenals: No masses seen. Kidneys: There is stable right renal cortical atrophy. No radiodense stones or obstructive uropathy. There is stable simple cysts in the right kidney. Abdominal Aorta: Abdominal portion non-dilated. Atherosclerosis is present. Bowel: No obstruction or bowel wall thickening. Peritoneal Cavity: No ascites, collection or mesenteric inflammatory response. No free air. Lymph Nodes: Within normal limits. Bones: Unremarkable. Soft Tissues: Unremarkable. IMPRESSION: 1. No evidence of abdominal metastatic disease. 2. No acute abdominal process. RADIATION DOSE DELIVERED: Total DLP DATA REPOSITORY: All CT scans at this facility are submitted to the National Radiology Data Registry (NRDR) Dose Index Registry (DIR) with the [employer] (ACR). RADIATION OPTIMIZATION: All CT scans at this facility use at least one of these dose optimization te chniques: automated exposure control; mA and/or kV adjustment per patient size (includes targeted exa ms where dose is matched to clinical indication); or iterative reconstruction.
[2022-02-02] MEDS: Normal Saline - Diluent 50 ML VIAL IV (11:43)
[2022-02-02] MEDS: Omnipaque 350 MG/ML 500 ML BTL-Imaging package 100 ML IV (11:45)
== END ==
PROVIDERS: Visit Provider Nurse Practitioner Family
DX: C69.31 Malignant neoplasm of right choroid (principal)
CPT/HCPCS: 74160; 82565

== ENCOUNTER 2022-05-30 12:11 | Emergency (ER) | payer MEDICAID, SELFPAY ==
--- NOTE | 2022-05-30 12:15 | DI.CT_ITS ---
Exam(s) CT NECK W EXAM: CT NECK W CLINICAL HISTORY: left submandibular/neck swelling,hx of melenoma. TECHNIQUE: Imaging Protocol: Axial computed tomography images with coronal and sagittal reformatted images were created and reviewed. CONTRAST MATERIAL: Intravenous: Omnipaque 350 Contrast volume:80mL COMPARISON: Comparison examination is include 01/18/2021. FINDINGS: Orbits and orbital soft tissues: Within normal limits. Visualized paranasal sinuses: There is mucosal thickening involving all the visualized paranasal sin uses with sparing of the right maxillary sinus. Nasopharynx: Within normal limits. Oropharynx: Within normal limits. Hypopharynx: There is left tonsillitis with enlargement of the left tonsils. There is a 2 cm fluid collection in the left pharyngeal region suggestive of an abscess. There is effacement of the left p iriform sinus. Larynx: Within normal limits. Retropharyngeal space: Within normal limits. Parotids/submandibular: Within normal limits. Thyroid gland: Within normal limits. Lymphadenopathy: There are enlarged lymph nodes in the left neck. The largest lies posterior to the parotid gland and measures 2.4 x 1.3 cm. The neck is largest is adjacent to the left submandibular gland and measures 1.9 x 1.4 cm. Trachea: Within normal limits. Lung apices: Within normal limits. Bones: Within normal limits for the patient's age. Carotids/Jugular: Within normal limits. Soft tissues: Within normal limits. IMPRESSION: 1. Left tonsillitis with a 2 cm abscess. 2. Enlarged left neck lymph nodes which are likely reactive. 3. Paranasal sinusitis. RADIATION DOSE DELIVERED: 457.05mGy.cm Total DLP 457.05mGy.cm Total DLP DATA REPOSITORY: All CT scans at this facility are submitted to the National Radiology Data Registry (NRDR) Dose Index Registry (DIR) with the [employer] (ACR). RADIATION OPTIMIZATION: All CT scans at this facility use at least one of these dose optimization te chniques: automated exposure control; mA and/or kV adjustment per patient size (includes targeted exa ms where dose is matched to clinical indication); or iterative reconstruction.
[2022-05-30 12:21] VITALS: BP 110/92; PULSE 105; RESP 16; TEMP 36.9; O2SAT 97
--- NOTE | 2022-05-30 12:26 | ED.GENADUL_ITS ---
Discharge Plan Disposition Patient Disposition: Against Medical Advice Discharge Details Clinical Impression: Abscess of larynx Primary Care Provider: Cyndi Song ED Provider: Alphonso Street Home Meds and New Rx's Prescriptions: No Action amlodipine 5 MG tablet 10 mg PO DAILY lisinopril 40 MG tablet 40 mg PO DAILY amitriptyline 25 MG tablet 25 mg PO HS Qty: 30 3RF Patient Comments: 05/30/22 not taking - not on pcp list labetalol 100 MG tablet 100 mg PO BID Qty: 60 0RF celecoxib 100 mg capsule 100 mg PO BID Patient Comments: TAKE ONE CAPSULE BY MOUTH EVERY DAY NEEDED FOR PAIN atorvastatin 40 mg tablet 40 mg PO HS aspirin 81 mg tablet,delayed release (DR/EC) 81 mg PO DAILY Patient Comments: Take 1 tablet by mouth once a day gabapentin 300 mg capsule 600 mg PO BID Patient Comments: Take 2 capsule by mouth three times a day meclizine 25 mg Tablet 25 mg PO Q8H PRN Discharge Instructions Instructions: Abscess (ED) Additional Instructions: To be absolutely clear it is not our recommendation that you leave and go home right now, it is critically important that you go to [facility] for continued airway observation and potential surgical management. As you have elected to go home to take care of your family affairs, it is my recommendation that you immediately go to [facility] emergency department at your earliest opportunity. There is a high risk that the abscess will increase in size, cutting off your airway leading to your . 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 Patient states that about 3 to 4 days ago he developed mild swelling in his left neck just under the jaw. He admits to mild soreness in that area. He admits to slight pain with eating but denies any actual difficulty drinking or eating. He denies any difficulty breathing. He denies any previous symptoms. He has had notable dental surgeries in the past removing all but his essentially for front lower teeth. He has no molars anymore. He denies any fever or chills. He has taken single dose of NSAIDs at home but this did not improve his symptoms. No other complaints at this time. No other modifying factors. Physical exam demonstrates a well-appearing male, no evidence of airway compromise. No difficulty controlling secretions. A small area of diffuse swelling is noted below the left jaw. No focal abscess that I can palpate a focal nodule. Differential includes mild infection, mild early abscess, but differential also includes cancer or malignancy. We did a CT scan scan of the neck for further assessment, order basic labs and give Toradol. Patient otherwise appears clinically stable. Sensation intact throughout, no signs of actual neurologic deficit, facial symmetry, or signs of stroke. 1:43 PM Laboratory work-up demonstrates a white count of 14, left shift, neutrophil predominance, lactate is 1.2, electrolytes normal. CRP is elevated as is the ESR. CT scan shows evidence of a 2 cm peritonsillar abscess, however it appears to be inferior to the tonsil, and at the base of the tongue which makes sense as to why I could not visualize it. Patient feels that the pain is getting slightly worse and not better. He is still able to eat and drink and thankfully shows no stridor at this point. We will reach out to [facility] as we do not have any available ENT coverage at this time. At this time patient has been given Ofirmev, Toradol, 10 mg of Decadron, and Unasyn. 3:25 PM Discussed the case with [facility], spoke with the ER doctor Dr. Harpreet Snyder, as well as ENT Dr. Luiza Rich, and at this time they accept the patient for transfer. Unfortunately when I did discuss with the patient the transfer to [facility] the patient stated that he is able to go to [facility] but he needs to go home to take care of his grandson first. I spent 15 minutes with the patient describing in extreme clarity the concern with the abscess over his trachea, by his vocal cords/epiglottis, and how if this increases at all it could lead to a critical airway obstruction that could very quickly and immediately lead to his , lifelong disability, or worsening of his disease process. Patient states that he understands this, and states that he will go drive either back here or to the [facility] emergency department, however he made it unequivocally clear that he would be taking care of his grandson first before he would take care of his own needs and the situation. I did try to problem solve with different options or other alternatives for the patient getting assistance for the help with his grandson, he made it clear that those were not an option, and that he would be the one taking care of this problem specifically. I made it very clear to the patient that the decision he was making would likely lead to his permanent or disability, and he understands this and he verbalizes this. Patient does not demonstrate stridor or a hot potato voice. Patient is of a appropriate age to make decisions. The patient is of sound mind, appears clinically sober, and has capacity to make decisions by my clinical exam. We have provided options for treatment and discussed the risks and benefits of these options and refusing these options, including and disability specific to the patient's pathology. Patient is able to discuss the risks and benefits and alternatives of treatment and refusing treatment. We have tried to involve the patient's family or support group that was present here or by contacting them on the phone. The patient chooses to leave before evaluation and treatment is complete AGAINST MEDICAL ADVICE. FINDINGS: Paranasal sinuses: Mucoperiosteal thickening in the ethmoid air cells, visualized frontal sinuses and sphenoid sinuses. There is an air-fluid level in the dependent portion of the left maxillary sinus. Pharynx: Left tonsillitis with 2 cm abscess. The inflammation extends into the left piriformis sinus. The right tonsils unremarkable. Larynx: Unremarkable. Epiglottis is normal. Prevertebral and retropharyngeal spaces: Unremarkable. Salivary glands: Normal. Glands are normal in size. Thyroid: The thyroid gland is normal. Lymph nodes: Unremarkable. No lymphadenopathy. Trachea: Visualized trachea is unremarkable. Lungs: Unremarkable as visualized. Bones/joints: Unremarkable. No acute fracture. Soft tissues: Unremarkable. No significant soft tissue swelling. IMPRESSION: 1. Left tonsillitis with 2 cm abscess. Inflammation of the left piriformis sinus. 2. Paranasal sinusitis as described. Thank you for allowing us to participate in the care of your patient. Dictated and Authenticated by: Jeremie Willis MD 05/30/2022 1:38 PM Eastern Time ([place] & [place]) HPI General Date/Time Provider Initiated Documentation: 05/30/22 12:12 . 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 Patient states that about 3 to 4 days ago he developed mild swelling in his left neck just under the jaw. He admits to mild soreness in that area. He admits to slight pain with eating but denies any actual difficulty drinking or eating. He denies any difficulty breathing. He denies any previous symptoms. He has had notable dental surgeries in the past removing all but his essentially for front lower teeth. He has no molars anymore. He denies any fever or chills. He has taken single dose of NSAIDs at home but this did not improve his symptoms. No other complaints at this time. No other modifying factors. Related Data Home Medications Medication Instructions Recorded Confirmed labetalol 100 mg tablet 100 mg PO BID #60 tabs 01/20/17 05/30/22 amlodipine 5 mg tablet 10 mg PO DAILY 06/14/17 05/30/22 lisinopril 40 mg tablet 40 mg PO DAILY 06/14/17 05/30/22 amitriptyline 25 mg tablet 25 mg PO HS #30 tab-caps 06/15/17 01/18/21 aspirin 81 mg tablet,delayed 81 mg PO DAILY 05/30/22 05/30/22 release atorvastatin 40 mg tablet 40 mg PO HS 05/30/22 05/30/22 celecoxib 100 mg capsule 100 mg PO BID 05/30/22 05/30/22 gabapentin 300 mg capsule 600 mg PO BID 05/30/22 05/30/22 meclizine 25 mg tablet 25 mg PO Q8H PRN 05/30/22 05/30/22 Previous Rx's Medication Instructions Recorded labetalol 100 mg tablet 100 mg PO BID #60 tabs 01/20/17 amitriptyline 25 mg tablet 25 mg PO HS #30 tab-caps 06/15/17 Allergies Allergy/AdvReac Type Severity Reaction Status Date / Time duloxetine Allergy Severe Unverified 05/30/22 14:46 General DAJA: 3 Review of Systems All systems reviewed & are unremarkable except as noted in HPI and below PFSH All Active Problems (Updated 05/30/22 @ 15:[address] DO) Colitis (Acute) Stroke (Chronic) Abscess of larynx (Acute) Social History Smoking/Tobacco Use Status: Current every day Tobacco Type: cigarettes Smoking risk assessment performed?: Yes Alcohol Intake: former Drug use: Never Substance use type: does not use Do you feel safe at home: Yes Do you feel safe in your relationship?: Yes Exam Narrative Exam Narrative: 1.Const: Well-nourished, Well-developed, appearing stated age 2.Eyes: PERRL, no conjunctival injection, and symmetrical lids. 3.ENT: Atraumatic external nose and ears. Moist MM. Neck: Symmetric, trachea midline, No thyromegaly. Notably diminished dentition, patient only has a few remaining front teeth which are notably disease. No evidence of periapical abscess, no swelling along the jaw itself. No edema in the posterior oropharynx. No stridor. Uvula is midline. Tonsils appear relatively unremarkable. Slight increase in size of the tonsils but no clear evidence of palpable peritonsillar abscess on exam/palpation. Patient's left neck demonstrates a small area of very diffuse gentle soft tissue swelling below the left jaw. Thyroid does not appear enlarged. No focal hard nodule or focal palpable mass. No nuchal rigidity or neck stiffness. No trismus. 4.CVS: +S1/S2, No murmurs or gallops. Peripheral pulses 2+ and equal in all extremities. Brisk capillary refill in all extremities. 5.RESP: Unlabored respiratory effort. Clear to auscultation bilaterally. No wheezes rales or rhonchi 6.GI: Soft, Nontender/Nondistended, No hepatosplenomegaly. No guarding or rebound. 7.MSK: Normocephalic/Atraumatic, Extremities w/o deformity or ttp No cyanosis or clubbing, Normal movement of all extremities 8.Skin: Warm, Dry. No rashes or lesions. 9.Neuro: baseball pitcher II-XII grossly intact. Sensation grossly intact, no focal neurologic deficits. 10.Psych: (AAO) x3. Appropriate mood and affect
[2022-05-30] MEDS: Ketorolac 15 MG/ML VIAL IVP (12:44)
[2022-05-30 12:45] LABS: Lactate 1.2 mmol/L (0.6-1.4)
[2022-05-30 12:46] LABS: Abs Immature Grans 0.05 10^3/uL (0.0-0.06); Absolute Basophil Count 0.03 10^3/uL (0.0-0.2); Absolute Eosinophil Count 0.09 10^3/uL (0.0-0.7); Basophils % 0.2; Eosinophils % 0.6; HCT 44.8 % (40.0-50.0); HGB 15.3 g/dL (13.5-17.5); Immature Grans % 0.3; Lymphocytes % 17.8; MCH 28.7 pg (27.0-33.0); MCHC 34.2 % (32.0-36.0); MCV 84 fL (80-95); MPV 9.1 fL (8.0-11.0); Monocytes % 7.7; Neutrophils % 73.4; Platelet Count 384 10^3/uL (130-400); RBC 5.33 10^6/uL (4.36-5.78); RDW 12.9 % (11.8-14.1); RDW-SD 39.8 fL; WBC 14.76 10^3/uL (4.4-10.8)
[2022-05-30 12:48] LABS: Absolute Lymphocyte Count 2.63 10^3/uL (1.2-3.4); Absolute Monocyte Count 1.14 10^3/uL (0.1-0.8); Absolute Neutrophil Count 10.83 10^3/uL (1.2-6.7); ESR 28 mm/hr (0-15)
[2022-05-30] MEDS: Omnipaque 350 MG/ML 100 ML BTL IJ (13:01)
[2022-05-30] MEDS: Normal Saline - Diluent 50 ML VIAL IJ (13:03)
[2022-05-30] MEDS: Normal Saline Flush 10 ML SYR IVP (13:04)
[2022-05-30 13:12] LABS: ALT 25 U/L (16-63); AST 12 U/L (15-37); Albumin 3.9 g/dL (3.4-5.0); Alkaline Phosphatase 47 U/L (46-116); Anion Gap 6.8 mmol/L (3-11); BUN 11 mg/dL (7-18); Bilirubin, Total 0.4 mg/dL (0.2-1.0); C-Reactive Protein 4.85 mg/dL (0.0-0.3); CO2 29.2 mmol/L (21.0-32.0); CREATININE 1.1 mg/dL (0.70-1.30); Calcium 9.8 mg/dL (8.5-10.1); Chloride 99 mmol/L (98-107); Estimated GFR 83.32 (mL/min/1.73m2); Glucose 129 mg/dL (74-106); Potassium 4.1 mmol/L (3.5-5.1); Sodium 135 mmol/L (136-145); TSH (W/Ref FT4) 0.61 uIU/mL (0.36-3.74); Total Protein 9.1 g/dL (6.4-8.2)
[2022-05-30] MEDS: ACETAMINOPHEN 1,000 MG/100 ML BTL 400 MG IVPB (13:27)
--- NOTE | 2022-05-30 13:38 | DI.VRAD_ITS ---
PROCEDURE INFORMATION: Exam: CT Neck With Contrast Exam date and time: 05/30/2022 12:56 PM Age: 46 years old Clinical indication: Other: Left submandibular/neck swelling, HX of melenoma; Patient HX: Right eye cancer 1 year ago TECHNIQUE: Imaging protocol: Computed tomography of the neck with contrast. Contrast material: OMNIPAQUE 350; Contrast volume: 80 ml; Contrast route: INTRAVENOUS (IV); COMPARISON: CT BRAIN NECK CTA 01/18/2021 12:58 PM FINDINGS: Paranasal sinuses: Mucoperiosteal thickening in the ethmoid air cells, visualized frontal sinuses and sphenoid sinuses. There is an air-fluid level in the dependent portion of the left maxillary sinus. Pharynx: Left tonsillitis with 2 cm abscess. The inflammation extends into the left piriformis sinus. The right tonsils unremarkable. Larynx: Unremarkable. Epiglottis is normal. Prevertebral and retropharyngeal spaces: Unremarkable. Salivary glands: Normal. Glands are normal in size. Thyroid: The thyroid gland is normal. Lymph nodes: Unremarkable. No lymphadenopathy. Trachea: Visualized trachea is unremarkable. Lungs: Unremarkable as visualized. Bones/joints: Unremarkable. No acute fracture. Soft tissues: Unremarkable. No significant soft tissue swelling. IMPRESSION: 1. Left tonsillitis with 2 cm abscess. Inflammation of the left piriformis sinus. 2. Paranasal sinusitis as described. Dictated and Authenticated by: Jeremie Willis MD. Ordering:KILO Werner MD
[2022-05-30] MEDS: AMPICILLIN/SULBACTAM 3 GM in Normal Saline 100 ML IVPB (13:51)
[2022-05-30] MEDS: Dexamethasone 10 MG/ML VIAL IVP (14:28)
[2022-05-30 15:06] VITALS: BP 121/88; PULSE 87; RESP 16; TEMP 36.8; O2SAT 97
== END 2022-05-30 15:10 | disposition left against medical advice (07) ==
PROVIDERS: Emergency Provider Student in an Organized Health Care Education/Training Program; PCP Nurse Practitioner Family
DX: J38.7 Other diseases of larynx (principal); R79.82 Elevated C-reactive protein (CRP); F17.210 Nicotine dependence, cigarettes, uncomplicated
CPT/HCPCS: 36415; 70491; 80053; 85652; 96365; 96367; 96375; 99285; 83605; 84443; 85025; 86140; 99284; J0131; J0295; J1100; J1885; J3490

== ENCOUNTER 2022-09-29 07:21 | Outpatient (CLI) | payer MEDICAID, SELFPAY ==
--- NOTE | 2022-09-29 | DI.RAD_ITS ---
Exam(s) XR HIP PELVIS ADULT BL EXAM: XR HIP PELVIS ADULT BL CLINICAL HISTORY: BILAT HIP PAIN, STIFFNESS, NO RECENT TRAUMA, M25.559. TECHNIQUE: 2D digital imaging was performed. Three views. COMPARISON: No exams were available for comparison FINDINGS: BONES: No acute fracture is present. No bony destructive lesion is seen. Bones are normally mineral ized. JOINTS: No dislocation present. Hip joint spaces are maintained. Mild acetabular spurring on the r ight. SI joints and pubic symphysis unremarkable. SOFT TISSUE: Smoothly marginated calcification adjacent to the right greater trochanter. IMPRESSION: Mild degenerative changes. DATA REPOSITORY: RADIATION DOSE DELIVERED:
== END 2022-09-29 07:41 ==
LOC: DI 07:23
PROVIDERS: PCP Nurse Practitioner Family; Visit Provider Physician Assistant
DX: M16.0 Bilateral primary osteoarthritis of hip (principal)
CPT/HCPCS: 73521

== ENCOUNTER → 2023-01-07 00:29 | Outpatient (CLI) | payer MEDICAID, SELFPAY ==
--- NOTE | 2023-01-07 14:30 | DI.CT_ITS ---
Exam(s) CT ABDOMEN W EXAM: CT ABDOMEN W CLINICAL HISTORY: h/o choroidal ca rt eye,c69.31,surveillance for mets TECHNIQUE: Imaging Protocol: Axial computed tomography images with coronal and sagittal reformatted images were created and reviewed CONTRAST MATERIAL: Intravenous: Omnipaque 350 Contrast volume:structured data in ml Contrast route:I V - Oral: yes COMPARISON: CT CT CHEST/ABD/PEL W from 06/05/[address] ABDOMEN W from 02/02/2022 FINDINGS: ABDOMEN: Lung Bases: Normal where visualized. Liver: Normal density. Stable on tiny hypodensity right lobe. Gallbladder and biliary tract: No radiodense calculus or dilation. Pancreas: Normal density, no abnormal calcifications or inflammatory process. Spleen: Normal. Kidneys: Scarring again noted mid to lower pole right kidney. Stable right renal cysts. No follow-u p recommended. No radiodense stones or obstructive uropathy. No masses seen. Adrenal glands: No masses seen. Abdominal Aorta: no aneurysm. Atherosclerotic changes. Lymph nodes: Within normal limits. Bowel: No wall thickening or evidence of obstruction. Stomach unremarkable as visualized. Bones: Unremarkable for age. IMPRESSION: Unremarkable CT scan of the abdomen. No evidence of metastatic disease. RADIATION DOSE DELIVERED: Total DLP DATA REPOSITORY: All CT scans at this facility are submitted to the National Radiology Data Registry (NRDR) Dose Index Registry (DIR) with the [employer] (ACR). RADIATION OPTIMIZATION: All CT scans at this facility use at least one of these dose optimization te chniques: automated exposure control; mA and/or kV adjustment per patient size (includes targeted exa ms where dose is matched to clinical indication); or iterative reconstruction.
[2023-01-07] MEDS: Omnipaque 350 MG/ML 100 ML BTL IJ (15:44)
[2023-01-07] MEDS: Normal Saline - Diluent 50 ML VIAL IJ (15:46)
== END ==
PROVIDERS: PCP Nurse Practitioner Family; Visit Provider Physician Assistant
DX: C69.31 Malignant neoplasm of right choroid (principal)
CPT/HCPCS: 74160; J3490

== ENCOUNTER 2023-05-02 10:34 | Outpatient (REF) | payer MEDICAID, SELFPAY ==
[2023-05-02 15:33] LABS: HCT 44.4 % (40.0-50.0); HGB 15.5 g/dL (13.5-17.5); MCH 29.5 pg (27.0-33.0); MCHC 34.9 % (32.0-36.0); MCV 85 fL (80-95); MPV 10.8 fL (8.0-11.0); Platelet Count 304 10^3/uL (130-400); RBC 5.25 10^6/uL (4.36-5.78); RDW 13.6 % (11.8-14.1); RDW-SD 42.1 fL; WBC 9.98 10^3/uL (4.4-10.8)
[2023-05-02 16:21] LABS: ALT 24 U/L (16-63); AST 13 U/L (15-37); Albumin 3.8 g/dL (3.4-5.0); Alkaline Phosphatase 37 U/L (46-116); Anion Gap 11.4 mmol/L (3-11); BUN 16 mg/dL (7-18); Bilirubin, Total 0.3 mg/dL (0.2-1.0); CO2 25.6 mmol/L (21.0-32.0); Calcium 9.4 mg/dL (8.5-10.1); Calculated LDL 134 mg/dL (<100); Chloride 103 mmol/L (98-107); Cholesterol 201 mg/dL (<200); Estimated GFR 92.84 (mL/min/1.73m2); Glucose 111 mg/dL (74-106); HDL Cholesterol 30 mg/dL (40-60); Sodium 140 mmol/L (136-145); Total Protein 7.4 g/dL (6.4-8.2); Triglyceride 187 mg/dL (<150)
== END 2023-05-02 10:35 | disposition home or self-care (01) ==
LOC: NCHCN 10:34
PROVIDERS: PCP Nurse Practitioner Family; Referring Provider Physician Assistant; Visit Provider Physician Assistant
DX: I10 Essential (primary) hypertension (principal); E78.5 Hyperlipidemia, unspecified
CPT/HCPCS: 80053; 80061; 85027

== ENCOUNTER → 2023-07-05 03:34 | Outpatient (CLI) | payer MEDICAID, SELFPAY ==
[2023-07-05] MEDS: Breeza Beverage 473 ML BTL PO ×2 (13:18→13:19)
[2023-07-05 13:50] LABS: CREATININE 1.1 mg/dL (0.70-1.30); Estimated GFR 82.81 (mL/min/1.73m2)
[2023-07-05] MEDS: Normal Saline - Diluent 50 ML VIAL IJ (15:13)
[2023-07-05] MEDS: Omnipaque 350 MG/ML 100 ML BTL IJ (15:15)
--- NOTE | 2023-07-05 15:17 | DI.CT_ITS ---
Exam(s) CT ABDOMEN PELVIS W EXAM: CT ABDOMEN PELVIS W CLINICAL HISTORY: RT CHOROID MELANOMA,MONITOR FOR METASTATIC DISEASE. TECHNIQUE: Imaging Protocol: Axial computed tomography images with coronal and sagittal reformatted images were created and reviewed CONTRAST MATERIAL: Intravenous: Omnipaque-350 100cc Oral: Yes. Oral contrast was also administered for bowel opacification. COMPARISON: CT CT ABDOMEN W from 02/02/[address] ABDOMEN W from 01/07/2023 FINDINGS: VISUALIZED LUNG BASES: No nodules nor pleural effusions evident. ABDOMEN: There is no ascites. No abnormal mesenteric masses. LIVER: There are no focal hepatic lesions evident. No dilated intrahepatic ducts. GALLBLADDER/BILIARY: No obvious gallbladder pathology. CBD is not dilated. PANCREAS: No evidence of pancreatic mass nor dilatation of the pancreatic duct. SPLEEN: Spleen is not enlarged. No obvious intrasplenic lesions. Splenic and portal veins are paten t. ADRENALS: There are no significant adrenal masses. KIDNEYS:Stable benign cysts noted in the right kidney lower pole. Largest of these benign cysts agai n measures 2.4 by 2.2 cm. In the posterior cortex of the right kidney there is a 1.5 by 1.3 cm findi ng which is probably hemorrhagic microcyst. It appears unchanged from 01/07/2023. No other focal ki dney findings. No hydronephrosis. No hydroureter. Urinary bladder wall is diffusely thickened prob ably related to cystitis. ABDOMINAL AORTA: Abdominal aorta is calcified and there is a fusiform infrarenal abdominal aortic ane urysm with maximum measurement 2.7 cm, unchanged from previous. Common iliac arteries are calcified but not enlarged. LYMPH NODES:There is no retroperitoneal nor paraaortic adenopathy. ABDOMINAL WALL: Fat containing left inguinal hernia noted does not contain bowel loops. GI: There is no evidence of bowel obstruction, free air, nor abscess. PELVIS: GI: No evidence of appendicitis.No evidence of sigmoid diverticulitis. LYMPH NODES: There is no intrapelvic nor inguinal adenopathy. REPRODUCTIVE: Prostate size normal. Seminal vesicles unremarkable. URINARY BLADDER: There is diffuse thickening of the urinary bladder wall probably related to cystitis . No evidence of diverticuli in the bladder. No radiopaque calculi in the bladder lumen. OSSEOUS: No fractures and no significant osseous lesions. IMPRESSION: 1. In the posterolateral cortex of the right kidney there is a 15 x 13 mm finding which is probably h emorrhagic cyst but should be verified with although the other cysts in the right kidney are benign c ysts. No significant findings in the opposite-left kidney. 2. Diffuse thickening of the urinary bladder wall probably related to cystitis. 3. There is a fusiform infrarenal abdominal aortic aneurysm with maximum diameter 2.7 cm 4. Other findings as above RADIATION DOSE DELIVERED: 1,560.29mGy.cm Total DLP DATA REPOSITORY: All CT scans at this facility are submitted to the National Radiology Data Registry (NRDR) Dose Index Registry (DIR) with the [employer] (ACR). RADIATION OPTIMIZATION: All CT scans at this facility use at least one of these dose optimization te chniques: automated exposure control; mA and/or kV adjustment per patient size (includes targeted exa ms where dose is matched to clinical indication); or iterative reconstruction.
== END ==
PROVIDERS: PCP Physician Assistant; Visit Provider Physician Assistant
DX: R93.2 Abnormal findings on diagnostic imaging of liver and biliary tract (principal)
CPT/HCPCS: 74177; 82565; J3490; Q9967

== ENCOUNTER → 2023-08-25 00:07 | Outpatient (CLI) | payer MEDICAID, SELFPAY ==
--- NOTE | 2023-08-25 09:45 | DI.MRI_ITS ---
Exam(s) MR LOWER JOINT BI WO EXAM: MR LOWER JOINT BI WO CLINICAL HISTORY: BILAT PAIN M87.051 IDIOPATHIC ASEPTIC NECROSIS RT FEMUR,M87.052,ASEPTIC TECHNIQUE: Multiplanar multisequence MRI of Russel hip was performed COMPARISON: CR XR HIP PELVIS ADULT BL from 09/29/2022 FINDINGS: Bones: There is no evidence of a fracture or avascular necrosis. No significant joint effusion or l abral injury is present. No bone marrow edema is seen. The SI joints and symphysis pubis are well le ntained. Musculotendinous structures: Musculotendinous structures demonstrate no abnormality. There is a sin gle calcification adjacent to the trochanter in each hip. They are each closely associated with an a djacent tendon and are suggestive of calcific tendinitis. There is edema in the soft tissues associa raul with the calcification in tendon, right greater than left. Intrapelvic structures demonstrate no significant abnormality. IMPRESSION: 1. No evidence of avascular necrosis or labral tear on this noncontrast examination. 2. Findings consistent with bilateral calcific tendinitis and greater trochanteric bursitis, right gr eater than left. DATA REPOSITORY:
== END ==
PROVIDERS: PCP Physician Assistant; Visit Provider Student in an Organized Health Care Education/Training Program
DX: M65.251 Calcific tendinitis, right thigh (principal); M65.252 Calcific tendinitis, left thigh
CPT/HCPCS: 73721

== ENCOUNTER 2024-01-30 01:12 | Outpatient (CLI) | payer MEDICARE, MEDICAID, SELFPAY ==
--- NOTE | 2024-01-30 | DI.CT_ITS ---
Exam(s) CT ABDOMEN PELVIS W EXAM: CT ABDOMEN PELVIS W CLINICAL HISTORY: SURVEILLANCE FOR METASTATIC CHOROIDAL MELANOMA, C69.31. TECHNIQUE: Imaging Protocol: Axial computed tomography images with coronal and sagittal reformatted images were created and reviewed. Biphasic protocol, as per request. CONTRAST MATERIAL: Intravenous: Omnipaque-350 100cc Oral: Yes. Oral contrast was also administered for bowel opacification. COMPARISON: CT CT ABDOMEN PELVIS W from 11/15/[address] CHEST/ABD/PEL W from 06/05/[address] ABDOMEN W from 02/02/2022 CR XR HIP PELVIS ADULT BL from 09/29/[address] ABDOMEN W from 01/07/[address] ABDOMEN PELVIS W from 07/05/2023 FINDINGS: VISUALIZED LUNG BASES: No nodules nor pleural effusions evident. ABDOMEN: There is no ascites. LIVER: There are no focal hepatic lesions evident. No dilated intrahepatic ducts. GALLBLADDER/BILIARY: No obvious gallbladder pathology. CBD is not dilated. PANCREAS: No evidence of pancreatic mass nor dilatation of the pancreatic duct. SPLEEN: Spleen is not enlarged. No obvious intrasplenic lesions. Splenic and portal veins are paten t. ADRENALS: There are no significant adrenal masses. KIDNEYS:Left kidney unremarkable. Benign cysts in left kidney are again noted. With respect of the previously described 1.5 x 1.3 cm finding in the posterior cortex the right kidney, it remains stable in size but again too dense to be a simple cyst. Perhaps hemorrhagic cyst. It also is unchanged fr om 01/07/2023. No other renal findings. No hydronephrosis. No calculi. There is less thickening o f the urinary bladder wall when compared to the prior 07/05/2023 study.. ABDOMINAL AORTA: Again noted is a fusiform infrarenal abdominal aortic aneurysm with maximum external diameter 2.7 cm, unchanged. No significant aneurysmal dilatation of the iliac arteries. LYMPH NODES:There is no retroperitoneal nor paraaortic adenopathy. ABDOMINAL WALL: No evidence of significant anterior abdominal wall nor inguinal hernia. GI: There is no evidence of bowel obstruction, free air, nor abscess. PELVIS: GI: No evidence of appendicitis.No evidence of sigmoid diverticulitis. LYMPH NODES: There is no intrapelvic nor inguinal adenopathy. REPRODUCTIVE: Prostate size normal. Seminal vesicles unremarkable. URINARY BLADDER: No calculi nor obvious masses evident. Significantly less thickening of the bladder wall when compared to the prior study OSSEOUS: No fractures. No new significant osseous lesions. Subtle sclerotic bone lesion in the righ t hemipelvis right iliac bone adjacent to the right sacroiliac joint is unchanged from 07/05/2023 and 01/07/2023 and was also evident on CT scan of 06/05/[address] scan of 11/15/2020 IMPRESSION: 1. The right kidney non completely cystic finding remains unchanged from recent CT scans. Possible h emorrhagic microcyst (when compared to the other typical benign cysts in the right kidney) and should be further studied with ultrasound. No additional significant right renal findings. No focal left kidney findings 2. Previously described diffuse thickening of the urinary bladder wall is not evident on the present study. 3. Stable fusiform infrarenal abdominal aortic aneurysm with maximum diameter 2.7 cm again noted. 4. Stable small sclerotic bone lesion in the medial aspect of the right iliac bone adjacent to the ri ght sacroiliac joint which is unchanged from at least November 2020 CT scan 5. There are no significant hepatic lesions. No evidence of new metastatic disease and no ascites. RADIATION DOSE DELIVERED: 386.38mGy.cm Total DLP DATA REPOSITORY: All CT scans at this facility are submitted to the National Radiology Data Registry (NRDR) Dose Index Registry (DIR) with the [employer] (ACR). RADIATION OPTIMIZATION: All CT scans at this facility use at least one of these dose optimization te chniques: automated exposure control; mA and/or kV adjustment per patient size (includes targeted exa ms where dose is matched to clinical indication); or iterative reconstruction.
[2024-01-30] MEDS: Barium Sulfate 2% W/V-Berry Smoothie 450 ML BTL PO ×2 (09:30→09:32)
[2024-01-30 09:46] LABS: Anion Gap 7.6 mmol/L (3-11); BUN 15 mg/dL (7-18); CO2 28.4 mmol/L (21.0-32.0); CREATININE 1.2 mg/dL (0.70-1.30); Calcium 9.1 mg/dL (8.5-10.1); Chloride 102 mmol/L (98-107); Estimated GFR 74.13 (mL/min/1.73m2); Glucose 108 mg/dL (74-106); Potassium 4.4 mmol/L (3.5-5.1); Sodium 138 mmol/L (136-145)
[2024-01-30] MEDS: Omnipaque 350 MG/ML 100 ML BTL IJ (11:14)
[2024-01-30] MEDS: Normal Saline - Diluent 50 ML VIAL IJ (11:16)
== END 2024-01-30 01:32 ==
PROVIDERS: PCP Physician Assistant; Visit Provider Physician Assistant
DX: C69.31 Malignant neoplasm of right choroid (principal)
CPT/HCPCS: 80048; 74177; J3490

== ENCOUNTER 2024-04-03 12:17 | Outpatient (REF) | payer MEDICARE, MEDICAID, SELFPAY ==
[2024-04-03 15:25] LABS: HCT 47.9 % (40.0-50.0); HGB 16.4 g/dL (13.5-17.5); MCH 29.3 pg (27.0-33.0); MCHC 34.2 % (32.0-36.0); MCV 86 fL (80-95); MPV 10.2 fL (8.0-11.0); Platelet Count 295 10^3/uL (130-400); RDW 13.4 % (11.8-14.1); RDW-SD 41.8 fL; WBC 9.99 10^3/uL (4.4-10.8)
[2024-04-03 15:50] LABS: Anion Gap 8.5 mmol/L (3-11); BUN 14 mg/dL (7-18); CO2 25.5 mmol/L (21.0-32.0); CREATININE 1.1 mg/dL (0.70-1.30); Calcium 9.7 mg/dL (8.5-10.1); Calculated LDL 125 mg/dL (<100); Chloride 106 mmol/L (98-107); Cholesterol 188 mg/dL (<200); Estimated GFR 82.29 (mL/min/1.73m2); Glucose 100 mg/dL (74-106); HDL Cholesterol 36 mg/dL (40-60); Potassium 4.7 mmol/L (3.5-5.1); Sodium 140 mmol/L (136-145); TSH 1.09 uIU/mL (0.36-3.74); Triglyceride 135 mg/dL (<150)
[2024-04-03 16:15] LABS: FREE T4 0.94 ng/dL (0.76-1.46)
== END 2024-04-03 12:18 | disposition home or self-care (01) ==
LOC: NCHCN 12:17
PROVIDERS: PCP Physician Assistant; Visit Provider Physician Assistant
DX: I10 Essential (primary) hypertension (principal)
CPT/HCPCS: 80048; 80061; 85027; 84439; 84443

== ENCOUNTER 2024-11-21 13:38 | Emergency (ER) | payer MEDICARE, MEDICAID, SELFPAY ==
[2024-11-21] VITALS (34 sets, daily range): BP systolic 132–221; BP diastolic 86–131; PULSE 68–99; RESP 13–23; TEMP 36.2; O2SAT 88–99
--- NOTE | 2024-11-21 13:30 | RT.EKG_ITS ---
APPROVED REPORT Exam: Resting ECG Reason for Exam: chest pain Patient Location: E HR:72 bpm ECG Measurements Heart Rate 72 AXIS SD 133 P 57 QRSd 110 QRS -70 QT 396 T 22 QTc 435 Conclusion Sinus rhythm...normal P axis, V-rate 60- 99 Left anterior fascicular block...axis(240,-40), init forces inf No STEMI
[2024-11-21 14:09] LABS: Abs Immature Grans 0.06 10^3/uL (0.0-0.06); HCT 45.3 % (40.0-50.0); HGB 15.9 g/dL (13.5-17.5); Immature Grans % 0.4 %; MCH 28.9 pg (27.0-33.0); MCHC 35.1 % (32.0-36.0); MCV 82 fL (80-95); MPV 9.3 fL (8.0-11.0); Platelet Count 231 10^3/uL (130-400); RBC 5.51 10^6/uL (4.36-5.78); RDW 13.7 % (11.8-14.1); RDW-SD 40.9 fL; WBC 15.32 10^3/uL (4.4-10.8)
--- NOTE | 2024-11-21 14:12 | W.ED.GENAD ---
Discharge Plan Disposition Patient Disposition: Transfer-Acute Inpatient Care Specific Acute Inpt Facility: [facility] Discharge Details Clinical Impression: Aortic dissection Primary Care Provider: Dillan Li ED Provider: Harpreet Dykes Home Meds and New Rx's Prescriptions: No Action lisinopril 40 MG tablet 40 mg PO DAILY carvedilol 12.5 mg tablet 12.5 mg PO BID Rx Instructions: must administer with a meal/food atorvastatin 40 mg tablet 80 mg PO HS gabapentin 300 mg capsule 600 mg PO TID aspirin 81 mg tablet,delayed release (DR/EC) 81 mg PO DAILY Patient Comments: Take 1 tablet by mouth once a day meclizine 25 mg Tablet 25 mg PO Q8H PRN HPI General Date/Time Provider Initiated Documentation: 11/21/24 14:12. HPI Narrative: MDM This is an uncomfortable appearing hypertensive but afebrile and not tachycardic 48-year-old male with risk factors for acute coronary syndrome and concerning chest pain for which patient will undergo troponin testing. No pain out proportion to suggest necrotizing soft tissue infection. Given tearing quality I am also concerned for the possibility of aortic dissection so well complete CT angiogram chest abdomen pelvis. No cough to suggest pneumonia. No positional component to suggest pericarditis. Not hypotensive nor dialysis patient so I suspicion is low for cardiac tamponade. I considered PE however the patient is PERC negative so I did not send a D-dimer. No rash to chest to suggest zoster. No history of recent emesis to suggest increased risk for esophageal rupture. 2:40 PM Initial reassuring troponin. CBC with leukocytosis but no anemia. No thrombocytopenia. Comprehensive metabolic panel showing SERGEY. Mild hyperglycemia and normal bicarbonate no anion gap. Not consistent with DKA. Mildly elevated alkaline phosphatase similar to prior. Mildly elevated lipase. Less than 3 times upper limit of normal and not consistent pancreatitis. 4:10 PM I was called to CT scan as patient had dissection viewed by tech. Patient had an ascending dissection for which I ordered nicardipine drip. I reached out to transfer center will have techs pushed images and I have requested [facility] helicopter. Patient will be placed on a stretcher. 10:45 PM Late charting due to patient care. Patient's was [place]. Rios [place] [facility] [place] was initiated on nicardipine and subsequently esmolol drip with opiate pushes for analgesia. We did several blood pressures near goal of less than 120 systolic. He was not tachycardic however his rates were in the 80s. I updated the patient and significant other at bedside multiple occasions. Patient had pulses in all 4 extremities. He had a reassuring venous lactate at 0.9 millimoles per liter. Diagnostic interpretations performed by me: Per my independent interpretation EKG shows: Sinus rhythm at a rate of 72 with left anterior fascicular block. Left axis deviation. NH and QTc within normal limits. There is ST segment elevation in lead V2. This appears more pronounced compared to prior dated 4 years ago. There is slightly more pronounced ST segment depression in lead III compared to prior. Not meeting occlusion [place] criteria. Repeat ECG showing sinus rhythm rate of 86. Left internal fascicular block. No evolving ST segment changes. Appears similar to prior. ]Medications: Aspirin fentanyl nitroglycerin HPI This is a patient with a history of high blood pressure and melanoma presenting with chest pain. Approximately an hour ago, while engaged in physical work, the patient experienced a sudden onset of stabbing chest pain that has since radiated to the back. This is the first occurrence of such pain. The patient also reports excessive burping. The pain intensifies with movement. The patient reports no recent cough, cold symptoms, or fevers, and no rash on the chest. The patient recalls feeling dizzy and sweaty prior to the onset of the chest pain. There is no history of diabetes or cholesterol issues. The patient's father of a heart attack at age 68. Exam General: Well-appearing in no acute distress speaking in complete sentences. Head: Normocephalic, atraumatic. Eye: Extraocular eye movements intact. No conjunctival injection. No scleral icterus. Ear, nose, mouth, throat: Grossly normal inspection. Normal voice, handling secretions normally. Neck: Trachea midline. Cardiovascular: Well-perfused distal extremities. Regular rate and rhythm Respiratory: Nonlabored respiration. Clear lungs bilaterally. Gastrointestinal: Nondistended abdomen. Soft. Nontender. Musculoskeletal: No edema. Moving all 4 extremities spontaneously. Skin: Normal for age and race, grossly normal temperature and turgor. No acute rash. Neurologic: Alert and appropriate, no apparent acute deficits. Psychiatric: Mood and manner are appropriate. Grooming and personal hygiene are appropriate. Related Data Home Medications ?Medication ?Instructions ?Recorded ?Confirmed lisinopril 40 mg tablet 40 mg PO DAILY 06/14/17 11/21/24 aspirin 81 mg tablet,delayed 81 mg PO DAILY 05/30/22 11/21/24 release meclizine 25 mg tablet 25 mg PO Q8H PRN 05/30/22 11/21/24 atorvastatin 40 mg tablet 80 mg PO HS 06/14/24 11/21/24 carvedilol 12.5 mg tablet 12.5 mg PO BID 06/14/24 11/21/24 gabapentin 300 mg capsule 600 mg PO TID 06/14/24 11/21/24 Allergies Allergy/AdvReac Type Severity Reaction Status Date / Time duloxetine Allergy Severe Other (See Verified 11/21/24 13:44 Comment) General Stated Complaint: Chest Pain DAJA: 2 Course Vital Signs Vital signs: Vital Signs Temperature 36.2 C L 11/21/24 13:40 Pulse 83 11/21/24 13:40 Respiratory Rate 16 11/21/24 13:40 Blood Pressure 185/110 H 11/21/24 13:40 Pulse Oximetry 97 11/21/24 13:40 Temperature 36.2 C L 11/21/24 13:40 Temperature Source Oral 11/21/24 13:40 Pulse 83 11/21/24 13:40 Respiratory Rate 16 11/21/24 13:40 Blood Pressure 185/110 H 11/21/24 13:40 Blood Pressure Position Sitting 11/21/24 13:40 Pulse Oximetry 97 11/21/24 13:40 Oxygen Delivery Method Room Air 11/21/24 13:40 Oxygen Flow Rate 0 11/21/24 13:40 Lab/Test Results Lab/Test Results: Laboratory Tests Range/Units 11/21/24 13:55 WBC (4.4-10.8) 10^3/uL 15.32 H RBC (4.36-5.78) 10^6/uL 5.51 Hgb (13.5-17.5) g/dL 15.9 Hct (40.0-50.0) % 45.3 MCV (80-95) fL 82 MCH (27.0-33.0) pg 28.9 MCHC (32.0-36.0) % 35.1 RDW (11.8-14.1) % 13.7 Plt Count (130-400) 10^3/uL 231 MPV (8.0-11.0) fL 9.3 Immature Gran % % 0.4 Neutrophils % % 64.2 Lymphocytes % % 27.2 Monocytes % % 7.0 Eosinophils % % 0.9 Basophils % % 0.3 Nucleated RBC % (0.0-0.3) % 0.0 Absolute Neutrophils (1.2-6.7) 10^3/uL 9.84 H Absolute Lymphocytes (1.2-3.4) 10^3/uL 4.17 H Absolute Monocytes (0.1-0.8) 10^3/uL 1.07 H Absolute Eosinophils (0.0-0.7) 10^3/uL 0.14 Absolute Basophils (0.0-0.2) 10^3/uL 0.05 Critical Care Time Critical Care Time Critical Care Time: Yes Total Critical Care Time: 60 Attestation: Bedside assessment and blood pressure titration in the setting of aortic dissection. 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
--- NOTE | 2024-11-21 14:15 | RT.EKG_ITS ---
APPROVED REPORT Exam: Resting ECG Reason for Exam: Chest pain Patient Location: E HR:86 bpm ECG Measurements Heart Rate 86 AXIS MT 136 P 59 QRSd 111 QRS -67 QT 386 T 31 QTc 463 Conclusion Sinus rhythm...normal P axis, V-rate 60- 99 Incomplete RBBB and LAFB...axis(240,-40), S>R II III aVF ST elev, probable normal early repol pattern...ST elevation, age<55 No Occlusion FL
--- NOTE | 2024-11-21 14:15 | DI.CT_ITS ---
Exam(s) CT THORAX ABD/PEL CTA EXAM: CT THORAX ABD/PEL CTA CLINICAL HISTORY: Chest pain concern for dissection. TECHNIQUE: Imaging Protocol: Axial computed tomography images with coronal and sagittal reformatted images were created and reviewed CONTRAST MATERIAL: Intravenous: Omnipaque 350 Contrast volume:100 ml Oral: None COMPARISON: CT CT ABDOMEN PELVIS W from 07/05/[address] ABDOMEN PELVIS W from 01/30/2024 FINDINGS: CHEST: AORTA: There is aortic dissection evident starting just distal to the takeoff point of the left subclavian artery (there is no aberrant right subclavian artery). The diameter of the ascending thoracic aorta is enlarged at 4.1 cm. There is no dissection the ascending thoracic aorta and there is no pericardial effusion. The dissection extends distally and terminates just distal to the takeoff point of the left renal artery. There are 2 left renal arteries. The more superior comes off the false lumen and the more inferior comes off the true lumen just below the most inferior aspect of the dissection flap. The right renal artery comes off of the true lumen as does the superior mesenteric artery and patent inferior mesenteric artery. 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 Superior mesenteric artery is widely patent. Also no evidence of embolus within the SMA. Inferior mesenteric artery is patent. The inferior aspect of the abdominal aorta just above the bifurcation is mildly aneurysmal exhibiting luminal diameter of 2.5 cm at this level (2.1 cm just above this level). The aortic bifurcation is patent. No significant findings in the left common and external iliac arteries and left internal iliac artery is patent. There is no aneurysmal dilatation of the right common iliac artery but there is a E focal nonocclusive intimal flap/dissection in the proximal half of the right common iliac artery. No significant stenosis nor aneurysmal dilatation at the junction of the right common and external iliac arteries and external iliac artery is nicely patent. Also no evidence of significant stenosis nor aneurysm dilatation of the right internal iliac artery. Both common femoral arteries are patent as are the visualized proximal aspects of both SFA arteries in the upper thighs. CARDIAC: Heart size upper normal. There is no pericardial effusion. PULMONARY ARTERIES: Well opacified and with no evidence of intraluminal filling defects to suggest pulmonary emboli. LUNGS: There are no significant infiltrates nor pleural effusions. No pneumothorax. No ominous lung lesions. No significant focal findings in the trachea and mainstem bronchi. MEDIASTINUM: No evidence of mediastinal hematoma. No hilar nor mediastinal adenopathy. Partially visualized thyroid unremarkable. ABDOMEN: GI: There are no ischemic appearing bowel loops. No free air. No ascites. No bowel obstruction. No enteritis pattern. LIVER: There are no focal hepatic lesions nor dilatation of intrahepatic ducts. GALLBLADDER/BILIARY: No obvious gallbladder pathology. CBD is not dilated. PANCREAS: No evidence of pancreatic mass nor dilatation of the pancreatic duct. SPLEEN: Spleen is not enlarged. There are no intrasplenic lesions. Splenic artery is patent. Splenic vein is patent. Portal vein patent ADRENALS: There are no significant adrenal masses. KIDNEYS: Both kidneys exhibit normal size. There are multiple cysts in the right kidney measuring up to 2.5 cm size. These benign cysts do not require further workup. No solid renal masses. Some cortical scarring is seen in the right kidney. Left kidney unremarkable. There are no renal calculi nor hydronephrosis. No hydroureter.. ABDOMINAL AORTA: See above/dissection LYMPH NODES: There is no retroperitoneal nor para-aortic adenopathy. No obvious mesenteric masses. ABDOMINAL WALL: No evidence of significant anterior abdominal wall hernia. PELVIS: LYMPH NODES: There is no intrapelvic nor inguinal adenopathy. GI: No evidence of appendicitis.Sigmoid diverticuli but no evidence of acute diverticulitis. URINARY BLADDER: No calculi nor masses evident REPRODUCTIVE: Prostate size normal. Seminal vesicles unremarkable. OSSEOUS: No fractures. No significant osseous lesions. IMPRESSION: 1. Acute aortic dissection. This starts just beyond the takeoff point of the left subclavian artery indicating that this is presently a type B dissection. The ascending thoracic aorta is enlarged at 4.1 cm but there is no dissection flap in the ascending thoracic aorta and there is no pericardial effusion. Heart size normal. 2. Dissection ends just below the renal arteries. It is interesting to note that there are 2 left renal arteries. One comes off of the true lumen and the other comes off of the false lumen. There is a single renal artery on the opposite-right side which comes off of the true lumen. 3. Patent superior mesenteric artery comes off of the true lumen. The inferior mesenteric artery is patent and comes off the true lumen. The celiac artery origin exhibits critical stenosis or occlusion although this was present prior to the acute dissection. The patent splenic artery and common hepatic artery are fed predominately due via SMA branches. 4. There are no acute ischemic appearing bowel loops and there is no ascites. Called to ER physician prior to this dictation completion 11/21/2024 RADIATION DOSE DELIVERED: Total DLP DATA REPOSITORY: All CT scans at this facility are submitted to the National Radiology Data Registry (NRDR) Dose Index Registry (DIR) with the [employer] (ACR). RADIATION OPTIMIZATION: All CT scans at this facility use at least one of these dose optimization techniques: automated exposure control; mA and/or kV adjustment per patient size (includes targeted exams where dose is matched to clinical indication); or iterative reconstruction.
[2024-11-21] MEDS: Aspirin 81 MG CHEW 324 MG CH (14:19)
[2024-11-21] MEDS: nitroGLYcerin 0.4 MG TAB SL ×2 (14:19→14:50)
[2024-11-21 14:29] LABS: ALT 41 U/L (16-63); AST 30 U/L (15-37); Albumin 4.1 g/dL (3.4-5.0); Alkaline Phosphatase 42 U/L (46-116); Anion Gap 7.7 mmol/L (3-11); BUN 13 mg/dL (7-18); Bilirubin, Total 0.6 mg/dL (0.2-1.0); CO2 29.3 mmol/L (21.0-32.0); Calcium 9.7 mg/dL (8.5-10.1); Chloride 105 mmol/L (98-107); Estimated GFR 61.61 (mL/min/1.73m2); Glucose 120 mg/dL (74-106); Potassium 3.6 mmol/L (3.5-5.1); Sodium 142 mmol/L (136-145); Total Protein 8.2 g/dL (6.4-8.2); Troponin I 32 ng/L (<or=76)
[2024-11-21 14:37] LABS: Lipase 92 U/L (<78)
[2024-11-21 15:20] LABS: Troponin I 26 ng/L (<or=76)
[2024-11-21] MEDS: fentaNYL 100 MCG/2 ML VIAL 50 MCG IVP (15:31)
[2024-11-21] MEDS: Omnipaque 350 MG/ML 100 ML BTL IJ (16:00)
[2024-11-21] MEDS: Normal Saline - Diluent 50 ML VIAL IJ (16:00)
[2024-11-21] MEDS: Normal Saline Flush 10 ML SYR IVP (16:00)
--- NOTE | 2024-11-21 16:17 | NUR.NOTE ---
Nursing Note: Pt. moved to RM [address] ED post CT scan due to CT scan results, MD at bedside to inform patient and of results. Pt. still reporting pain in chest that is squeezing in nature.
[2024-11-21] MEDS: niCARdipine 25 MG in Normal Saline 240 ML IV (16:20)
[2024-11-21] MEDS: HYDROmorphone 2 MG/ML SYR 1 MG IVP (16:24)
[2024-11-21] MEDS: ESMOLOL 2,500 MG/250 ML BAG 27 MG IV (17:09)
[2024-11-21] MEDS: HYDROmorphone 2 MG/ML SYR (17:11)
== END 2024-11-21 17:52 | disposition short-term general hospital (02) ==
PROVIDERS: General Practice; Emergency Provider Emergency Medicine; PCP Physician Assistant
DX: I71.00 Dissection of unspecified site of aorta (principal); I10 Essential (primary) hypertension
CPT/HCPCS: 36415; 71275; 80053; 83690; 93005; 96365; 96366; 96367; 96375; 96376; 99291; 74174; 83605; 84484; 85025; 93010; J1171; J1805; J2404; J3010; J3490